=== PATIENT | female | born 1960 | race Caucasian/White ===

== ENCOUNTER → 2018-09-12 | Outpatient (CLI) | payer OTHER ==
[~2018-09-12] MED LIST: ACET325T9 PO; BUSP5TAB PO; DIPH25CA58 PO; GADOBUTROL 7.5 MMOL/7.5 ML VIAL IV ONE; LORA10TA68 PO; PANT20TA2 PO; RITU10VI IV; THYR30TA PO
--- NOTE | 2018-09-12 16:56 | RAD ---
MRI of the Brain without and with Contrast 09/12/2018 Clinical History: History of lymphoma. Palpable mass in the region of the glabella for the last 2 months. Technique: Unenhanced T1-weighted sagittal and axial and FLAIR, T2-weighted, gradient echo and diffusion-weighted axial images of the brain were obtained. After the intravenous administration of 6 cc of Gadavist, enhanced T1-weighted axial, sagittal and coronal images of the brain were obtained. Additionally fat saturated thin section T1-weighted axial and sagittal images through the region of the patient's soft tissue mass were performed. Findings: No previous imaging studies are available for comparison. There is a mild generalized parenchymal atrophy. Patchy and a few small scattered areas of increased signal intensity are seen within the periventricular and subcortical white matter of both cerebral hemispheres on FLAIR and T2-weighted images consistent with areas of minimal small vessel ischemic disease. No acute parenchymal abnormality is seen. No extra-axial fluid collection is noted. There is no MRI evidence of acute ischemia/infarction. No area of abnormal parenchymal contrast enhancement is seen. A heterogeneously enhancing soft tissue mass is seen within the midline frontal scalp immediately anterior to the frontal sinuses. This measures 3.0 x 3.0 x 1.8 cm in craniocaudal, transverse and AP dimensions. This is consistent most likely with a neoplastic process given the patient's history. No intracranial extension is noted. No additional mass lesion is seen. Mild mucosal thickening is seen scattered throughout the paranasal sinuses. Normal flow voids are seen within the major vascular structures surrounding the brain parenchyma. IMPRESSION: 1. 3 cm soft tissue mass is seen within the midline frontal scalp anterior to the frontal sinuses concerning for a neoplastic process as outlined above. No intracranial extension is seen. 2. No acute parenchymal abnormality is seen. There is no MRI evidence of metastatic disease involving the brain parenchyma. Electronically signed by: Barber Muhammad MD (09/12/2018 4:51 PM) [facility]
== END | disposition home or self-care (01) ==
LOC: MRI 14:11 → EDUNIT# 14:45
PROVIDERS: ATTEND Internal Medicine Hematology & Oncology
DX: C83.31 Diffuse large B-cell lymphoma, lymph nodes of head, face, and neck (principal); Z88.8 Allergy status to other drugs, medicaments and biological substances
CPT/HCPCS: 70553; A9585

== ENCOUNTER 2018-09-13 10:16 | Outpatient (CLI) | payer OTHER ==
[~2018-09-13] VITALS: Ht 160 cm; Wt 63.5 kg
[2018-09-13] VITALS (8 sets, daily range): BP systolic 102–142; BP diastolic 50–76
[2018-09-13] MEDS ORDERED: LIDOCAINE WITH 8.4% SOD BICARB 3 ML DISP.SYRIN. ONE (10:39)
[2018-09-13 10:52] LABS: BASO % 1 % (0-3); EOS % 1 % (0-3); HEMATOCRIT 43.2 % (36.0-47.0); HEMOGLOBIN 14.1 g/dL (12.0-15.5); LYMPH # 0.2 x10^3/uL (1.0-4.8); LYMPH % 6 % (24-48); MEAN CORPUSCULAR HEMOGLOBIN 26 pg (25-35); MEAN CORPUSCULAR HGB CONC 33 g/dL (31-37); MEAN CORPUSCULAR VOLUME 79 fL (79-100); MONO # 0.2 x10^3/uL (0.0-1.1); MONO % 7 % (0-9); NEUT # 3.1 x10^3uL (1.8-7.7); NEUT % 85 % (31-73); PLATELET COUNT 230 x10^3/uL (140-400); RED BLOOD COUNT 5.49 x10^6/uL (3.50-5.40); RED CELL DISTRIBUTION WIDTH 14.6 % (11.5-14.5); WHITE BLOOD COUNT 3.6 x10^3/uL (4.0-11.0)
[2018-09-13] MEDS ORDERED: THYR30TA PO (10:59)
[2018-09-13] MEDS ORDERED: BUSP5TAB PO (10:59)
[2018-09-13] MEDS ORDERED: PANT20TA2 PO (10:59)
[2018-09-13 11:03] LABS: PROTHROMBIN TIME PATIENT 12.7 SEC (11.7-14.0)
[2018-09-13 11:04] LABS: CALCIUM 9.3 mg/dL (8.5-10.1); CREATININE 0.8 mg/dL (0.6-1.0); GFR 73.4; POTASSIUM 3.6 mmol/L (3.5-5.1)
[2018-09-13 11:08] LABS: ALBUMIN 4.1 g/dL (3.4-5.0); ALBUMIN/GLOBULIN RATIO 1.2 (1.0-1.7); TOTAL BILIRUBIN 0.4 mg/dL (0.2-1.0); TOTAL PROTEIN 7.5 g/dL (6.4-8.2)
[2018-09-13] MEDS ORDERED: LIDOCAINE 1%/EPI 1:100,000 20 ML VIAL. ONE (11:11)
[2018-09-13] MEDS ORDERED: MIDAZOLAM HCL/PF 5 MG/5 ML VIAL. ONE (11:20)
[2018-09-13] MEDS ORDERED: fentaNYL PF VIAL 100 MCG/2 ML VIAL ONE ×2 (11:20→11:21)
[2018-09-13 11:22] LABS: % BASOS 2 % (0-3); % EOS 2 % (0-5); % LYMPHS 12 % (24-48); % MONOS 11 % (0-10); % SEGS 73 % (35-66)
[2018-09-13 11:23] LABS: ANISOCYTOSIS SLIGHT; OVALOCYTES OCC; PLT ESTIMATE ADEQUATE (ADEQUATE)
[2018-09-13] MEDS ORDERED: LIDOCAINE WITH 8.4% SOD BICARB 3 ML DISP.SYRIN. IJ ONE (11:30)
[2018-09-13] MEDS ORDERED: fentaNYL PF VIAL 100 MCG/2 ML VIAL IV ONE (11:30)
[2018-09-13] MEDS ORDERED: MIDAZOLAM HCL/PF 5 MG/5 ML VIAL. IV ONE (11:30)
[2018-09-13] MEDS ORDERED: LIDOCAINE 2%/EPI 1:100,000 20 ML VIAL. IJ ONE (12:00)
--- NOTE | 2018-09-13 13:53 | NUR ---
discharge instructions reviewed with patient. Pt stated understanding. Pt ambulated and tolerated PO. Pt discharged from [facility] OBS to echo
--- NOTE | 2018-09-13 14:25 | RAD ---
CT-guided bone marrow biopsy. 09/13/2018 2:20 PM Indication: STAGING FOR BCELL LYMPHOMA Discussion: The risks and benefits of the procedure, including but not limited to, bleeding and infection were discussed patient. Informed consent was obtained. The patient was brought to the CT scanner and placed in the prone position. A timeout procedure was performed. Collector CT imaging of the pelvis demonstrated left ilium amenable to bone marrow biopsy. The overlying soft tissues were prepped and draped using maximum sterile barrier technique. 1% lidocaine without epinephrine was administered for local anesthesia. Under intermittent CT guidance, an Onc Control needle was advanced into the bone marrow of the left iliac crest. 2 Aspirates and 1 core biopsy samples were obtained. Samples were delivered to pathology was present at the time of procedure. The needle was removed and manual pressure held to achieve hemostasis. No immediate complications were identified. The procedure was performed under conscious sedation including continuous cardiopulmonary monitoring via dedicated sedation nurse. Sedation time: 20 minutes Impression: Successful CT-guided bone marrow biopsy of the left iliac crest . PQRS Compliance Statement: One or more of the following individualized dose reduction techniques were utilized for this examination: 1. Automated exposure control 2. Adjustment of the mA and/or kV according to patient size 3. Use of iterative reconstruction technique
--- NOTE | 2018-09-13 15:16 | CARD ---
MR#: [id number] Date of Study: 09/13/2018 Ordering Physician: CALLUM ARMIJO, Referring Physician: CALLUM ARMIJO, Tech: Cecilia Chavez APPROVED REPORT EXAM: Two-dimensional and M-mode echocardiogram with Doppler and color Doppler. Other Information Quality : GoodHR: 83bpm Rhythm : NSR INDICATION Lymphoma/Bone Marrow Cancer 2D DIMENSIONS RVDd2.3 (2.9-3.5cm)Left Atrium(2D)3.0 (1.6-4.0cm) IVSd1.0 (0.7-1.1cm)Aortic Root(2D)3.2 (2.0-3.7cm) LVDd3.9 (3.9-5.9cm)LVOT Diameter2.0 (1.8-2.4cm) PWd0.9 (0.7-1.1cm)LVDs2.5 (2.5-4.0cm) FS (%) 36.8 %SV45.5 ml LVEF(%)67.3 (>50%) LEFT VENTRICLE The left ventricle is normal size. There is normal left ventricular wall thickness. The left ventricu lar systolic function is normal. The Ejection Fraction is 55-60%. There is normal LV segmental wall m otion. RIGHT VENTRICLE The right ventricle is normal size. There is normal right ventricular wall thickness. The right ventr icular systolic function is normal. ATRIA The left atrium size is normal. The right atrium size is normal. AORTIC VALVE The aortic valve is normal in structure and function. There is no significant aortic valvular stenosi s. MITRAL VALVE The mitral valve is normal in structure and function. There is no evidence of mitral valve prolapse. There is no mitral valve stenosis. TRICUSPID VALVE The tricuspid valve is normal in structure and function. There is no tricuspid valve prolapse or vege tation. There is no tricuspid valve stenosis. PULMONIC VALVE The pulmonic valve is not visualized. GREAT VESSELS The aortic root is normal in size. The IVC is normal in size and collapses >50% with inspiration. PERICARDIAL EFFUSION There is no evidence of significant pericardial effusion. Critical Notification Critical Value: No <Conclusion> Limited echo to assess LV function. The left ventricular systolic function is normal. The Ejection Fraction is 55-60%. There is normal LV segmental wall motion. There is no evidence of significant pericardial effusion. Signed by : Sami Brewer, Electronically Approved : 09/13/2018 15:14:28
[2018-09-15] MEDS ORDERED: PANT20TA2 PO (14:28)
[2018-09-15] MEDS ORDERED: RITU10VI IV (14:28)
--- NOTE | 2018-09-23 13:07 | PATHOLOGY ---
[facility] Accession Number: [id number] . 01 Material submitted: . PART A: BONE MARROW BIOPSY PART B: BONE MARROW CLOT PART C: BONE MARROW ASPIRATE SLIDES PART D: PERIPHERAL BLOOD PART E: BONE MARROW FLOW . 01 Clinical history: . Diffuse large B-cell lymphoma . 02 Diagnosis: Peripheral smear: - Mild leukopenia and absolute lymphopenia. . Bone marrow, aspirate smears, clot section, and core biopsy: - Variable normocellular to mildly hypercellular marrow showing trilineage hematopoiesis, no significant dyspoiesis, and nodular involvement by CD5, CD10 negative B-cell lymphoproliferative disorder. - Focally adequate reticuloendothelial iron stores. LBQ/09/22/2018 . 02 Comment: The peripheral smear shows mild leukopenia and absolute lymphopenia. The bone marrow is normocellular to mildly hypercellular and shows trilineage hematopoiesis, no significant dyspoiesis, and nodular involvement by low grade CD5,CD10 negative B-cell lymphoproliferative disorder. There is histologic discordance between the bone marrow and forehead lesion. The bone marrow lymphoproliferative disorder is comprised of small lymphocytes. The forehead lesion is a diffuse large B-cell lymphoma by report. The bone marrow shows no more than 20-30% involvement by lymphoma. The case is also examined by Dr. Sheyla Sanchez, who concurs with the diagnosis. (JPM/db; 09/22/2018) . Special stains performed: Reticulin stain on A1, iron stain on B1 and the aspirate smear . Immunoperoxidase stains on B1 include C20, CD3, CD5, CD23, CD10, cyclin D1, BCL-2, BCL-6, and MUM-1 . Immunoperoxidase stains on A1 include CD20 and CD3 . 02 Electronically signed: . Denis Garg MD, Pathologist NPI- [id number] . 01 Gross description: . A. Received in formalin labeled "Cecilia Andrade," and additionally labeled on the requisition as "BM BX," are 2 needle cores of waite bone measuring 0.5 and 1.2 cm in length and 0.3 cm each in diameter. The specimen is submitted entirely in cassette A1, following decalcification. . B. Received in formalin labeled "Cecilia Andrade, BM asp-clot," is an aggregate of dark waite blood clot measuring 2.5 x 1.1 x 0.2 cm. The specimen is filtered and entirely submitted in cassette B1. (TSD; 09/13/2018) TOB/TOB . 02 Microscopic: . Laboratory Data: The WBC count is 3.6 K/CMM, and the automated WBC differential reveals 85% neutrophils, 6% lymphs, 7% monos, 1% eos, and 1% baso. The RBC count is 5.49 M/CMM, hemoglobin 14.1 G/DL, hematocrit 43.2%, MCV 79 FL, MCH 26 PG, MCHC 33 G/DL, and the RDW is 14.6%. The platelet count is 230 K/CMM. The total protein is 7.5 G/DL, albumin 4.1 G/DL, and the globulin is 3.4 G/DL. Additional laboratory results are obtained from Dr. Armijo's office. The beta 2 microglobulin is 2.1 MG/L. The LDH is 267 U/L. The patient underwent biopsy of a forehead lesion on 08/26/2018 which revealed a diffuse large B-cell lymphoma which was MUM-1 positive. . Peripheral Smear: The peripheral smear is reviewed. The WBC count is mildly decreased. There is an absolute lymphopenia. The WBC differential reveals a predominance of segmented neutrophils, with small populations of lymphocytes and monocytes and an occasional eosinophil and basophil noted. Neutrophils do not show dysplastic changes. There is no significant neutrophilic left shift. There are no circulating blasts. The lymphocyte population consists of small lymphocytes with a few reactive lymphocytes noted. There are no obvious circulating lymphoma cells. Red blood cells appear normochromic. Red blood cells show no significant anisocytosis and range from normocytic to mildly microcytic. Red blood cells show mild poikilocytosis comprised of ovalocytes. Platelets appear normal in number and morphology with occasional large platelets are noted. . Aspirate Smears: Two Covarrubias's-stained and one iron-stained aspirate smears are examined. The smears contain only a few small marrow particles. Erythroid maturation appears normoblastic. There are no megaloblastic or overt dysplastic changes. Granulopoiesis qualitatively appears normal. There is no significant left shift or dysplastic changes. There is no increase of blasts. Megakaryocytes appear adequate and are of variable ploidy. Plasma cells are not increased. There are admixed small lymphocytes. There is no atypical large cell lymphoid infiltrate. There are no other cells foreign to the marrow. The iron stain smear contains only a few minute particles which are devoid of stainable iron. . Bone Marrow Biopsy and Clot Sections: Sections of the bone marrow biopsy reveal segments of bone marrow which range between 20-30% and 70-80% cellular. The clot section contains multiple marrow particles which range from approximately 20% up to approximately 60% cellular. There is trilineage hematopoiesis. There is a good admixture of erythroid and granulocytic precursors, which are present in varying stages of maturation. Megakaryocytes appear adequate and are of variable ploidy. There are multiple lymphoid nodules within the bone marrow biopsy. Most of these nodules are not paratrabecular. A few of the nodules are in part paratrabecular. Some of the nodules have an expansile appearance. The particles in the clot section also contain multiple lymphoid nodules. Some of these also have an expansile appearance. The lymphoid nodules are comprised of small lymphocytes having scanty cytoplasm and rounded to slightly irregular hyperchromatic nuclei. There is no atypical large cell lymphoid infiltrate. There are no granulomas. There are no other cells foreign to the marrow. To confirm flow cytometric findings and characterize the target cells in a tissue architectural context, a panel of immunoperoxidase stain is obtained and yields the following results: . CD20 (A1) - Predominant population of small lymphocytes within lymphoid nodules positive; a few small lymphocytes positive scattered throughout marrow interstitium. CD3 (A1) - Subpopulation of small lymphocytes within lymphoid nodules positive; small population of small lymphocytes positive having an interstitial distribution. CD20 (B1) - Slightly predominant population of small lymphocytes within lymphoid nodules positive; a few small lymphocytes positive within marrow interstitium. CD3 (B1) - Significant subpopulation of small lymphocytes within lymphoid nodules positive; small population of small lymphocytes positive having an interstitial distribution. CD5 (B1) - Small lymphocytes positive having a similar distribution as CD3 CD23 (B1) - Small lymphocytes negative. CD10 (B1) - Small lymphocytes negative. Cyclin D1 (B1) - Small lymphocytes essentially negative. BCL-2 (B1) - Small lymphocytes within lymphoid nodules and marrow interstitium positive. BCL-6 (B1) - Small lymphocytes within lymphoid nodules negative. MUM-1 (B1) - Few small lymphocytes within lymphoid nodules and interstitium positive . A reticulin stain obtained on the bone marrow biopsy shows focal increased reticulin fibers associated with the lymphoid nodules. An iron stain obtained on the clot section shows focally adequate reticuloendothelial iron stores. . Special Studies: Bone marrow submitted for flow cytometry has a viability of 99.2%. Granulocytes comprise 85.9% of total cells and show phenotypic evidence of dyssynchronous maturation with down regulation of CD10. Monocytes comprise 1.9% of total cells and show phenotypic evidence of maturation. CD45 dim, CD34 positive cells comprise 0.8% of total cells. Plasma cells comprise 0.1% of total cells. Lymphocytes comprise 5.8% of total cells. T-cells comprise 74% of lymphoid cells and show a CD4/CD8 ratio of about 5.5. NK-cells comprise 4% of lymphoid cells and are unremarkable. B-cells comprise 12.3% of lymphoid cells and 0.7% of total cells and are comprised of monoclonal B cells which are positive for CD19 and CD20 and show kappa light chain expression. These B-cells show no significant expression of CD5, CD10, CD11c, or CD23. By forward light scatter properties, the cells are mostly small. . Bone marrow submitted for cytogenetic analysis reveals a normal female karyocyte in all cells analyzed. (JPM:pit:db 09/19/2018) . 02 Pathologist provided ICD-10: D47.9, D72.819, D72.810 . 02 CPT . 975306, 978881, 047624, 904484, 382482, 381782, 281243, 527420, S43254, N26136 Specimen Comment: A courtesy copy of this report has been sent to Specimen Comment: [phone], , . Specimen Comment: Report sent to ,DR ARMIJO / DR GARCIA Specimen Comment: A duplicate report has been generated due to demographic updates. Performed at: [address] [place] [address] [address], [place], [place] [id number] MD Denzel Ibrahim MD Phone: [phone] Performed at: [address] [id number] MD Denis Garg MD Phone: [phone]
--- NOTE | 2018-10-04 13:20 | RAD ---
Procedure: Ultrasound and fluoroscopically guided placement of right internal jugular power port.. 09/13/2018 2:20 PM Clinical Indication: Chemotherapy access, lymphoma Sedation: Conscious sedation was administered for 30 minutes. The patient was monitored by a qualified independent observer throughout the time of sedation. Please refer to the medical record for exact doses of medications utilized to achieve moderate sedation. Fluoroscopy time: 0.4 minutes Dose area product: 1 Gycm2 Consent: The procedure was explained in its entirety to the patient or the patients designated digital media representative by a member of the treatment team, including a discussion of the risks, benefits and commonly accepted alternatives to the procedure, as well as the expected consequences of no therapy whatsoever. Discussion of the risks included, but was not limited to, those that are most frequent and those that are rare but possibly severe or life-threatening, as well as the possibility of unforeseen complications. Technique and Findings: All elements of maximal sterile barrier technique including the use of a cap, mask, sterile gown, sterile gloves, large sterile sheet, appropriate hand hygiene, and 2% chlorhexidine for cutaneous antisepsis (or acceptable alternative antiseptic per current guidelines) were followed for this procedure. Following informed consent, and a timeout procedure, the patient was prepped and draped in the usual sterile fashion. Ultrasound interrogation of the right neck revealed patency and compressibility of the right internal jugular vein. A 21-gauge micropuncture was then used to gain access to this vein under ultrasound guidance. A hard copy ultrasound image was recorded. The needle was exchanged over a wire for a sheath. A 1 inch incision was made several centimeters inferior to the venotomy site. A catheter was tunneled from this site dermatotomy site in the neck. Catheter was advanced through peel-away sheath such that its tip was in the proximal right atrium with the patient supine. The catheter was trimmed to length and connected to the port reservoir. The port was found to flush and aspirate normally. The wound was closed in layers using 4-0 Vicryl suture. Sterile dressings were applied. Impression: Successful ultrasound and fluoroscopically guided placement of a right internal jugular PowerPort DICTATED and SIGNED BY: LAISHA FRASER MD DATE: 09/13/18 1420 [facility]
== END 2018-09-13 14:05 | disposition home or self-care (01) ==
LOC: INTRAD 10:16
PROVIDERS: ATTEND Internal Medicine Hematology & Oncology
DX: C83.31 Diffuse large B-cell lymphoma, lymph nodes of head, face, and neck (principal); Z88.8 Allergy status to other drugs, medicaments and biological substances; Z79.899 Other long term (current) drug therapy
CPT/HCPCS: 36415; 36561; 38222; 76937; 77001; 77012; 80053; 85025; 85610; 88184; 88185; 88237; 88305; 88311; 88313; 88341; 88342; 93308; 99152; 99153; C1751; C1892; J0690; J2250; J3010; J3490; 85007

== ENCOUNTER 2018-11-07 12:29 | Emergency (ER) | payer OTHER ==
[~2018-11-07] VITALS: Ht 160 cm; Wt 63.5 kg
[~2018-11-07 12:29] MED LIST changes: -ACET325T9 PO; -DIPH25CA58 PO; -GADOBUTROL 7.5 MMOL/7.5 ML VIAL IV ONE; -LORA10TA68 PO
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
[2018-11-07 13:33] VITALS: BP 121/69
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
== END 2018-11-07 13:39 | disposition home or self-care (01) ==
LOC: ER 12:29
DX: Z04.1 Encounter for examination and observation following transport accident (principal); E03.9 Hypothyroidism, unspecified; Z95.9 Presence of cardiac and vascular implant and graft, unspecified; Z88.8 Allergy status to other drugs, medicaments and biological substances; V43.62XA Car passenger injured in collision with other type car in traffic accident, initial encounter; Y93.89 Activity, other specified; Y92.410 Unspecified street and highway as the place of occurrence of the external cause; Y99.8 Other external cause status
CPT/HCPCS: 71045; 99283

== ENCOUNTER 2018-11-23 12:09 | Inpatient (IN) | payer OTHER ==
[~2018-11-23] VITALS: Ht 160 cm; Wt 64.4 kg
--- NOTE | 2018-11-23 12:24 | PHYS DOC ---
Past Medical History Past Medical History: Cancer, Hypothyroid, Other Additional Past Medical Histor: LYMPHOMA (PERI ADAM APRN) Past Surgical History: Other Additional Past Surgical Histo: PAC R CHEST (VERNAPERI Colunga APRN) Alcohol Use: None Drug Use: None (VRENACristinePERI APRN) Adult General Chief Complaint Chief Complaint: FEVER HPI HPI Patient is a 58 year old female with history of lymphoma on chemotherapy last treatment 6 days ago who presents to the ED today complaining of fever that began last night. Patient is also complaining of chills and a cough. Denies any chest pain or shortness of breath. Patient states she took Tylenol an hour ago. PCP Dr. Talat Resendiz Oncologist Dr. Turner (PERI ADAM APRN) Review of Systems Review of Systems Constitutional: Reports fever and chills [] Eyes: Denies change in visual acuity, redness, or eye pain [] HENT: Denies nasal congestion or sore throat [] Respiratory: reports cough denies shortness of breath [] Cardiovascular: No additional information not addressed in HPI [] GI: Denies abdominal pain, nausea, vomiting, bloody stools or diarrhea [] : Denies dysuria or hematuria [] Musculoskeletal: Denies back pain or joint pain [] Integument: Denies rash or skin lesions [] Neurologic: Denies headache, focal weakness or sensory changes [] All other systems were reviewed and found to be within normal limits, except as documented in this note. (RONACARLEENPERI Colunga APRN) Current Medications Current Medications Current Medications Medications (Trade) Dose Ordered Sig/Anne Start Time Stop Time Status Last Admin Dose Admin Piperacillin Sod/ Tazobactam Sod 4.5 gm/Sodium Chloride 100 ml @ 200 mls/hr 1X ONCE 11/23/18 12:30 11/23/18 12:59 DC 11/23/18 13:20 200 MLS/HR Sodium Chloride 1,000 ml @ 1,560 mls/hr Q39M 11/23/18 12:29 11/23/18 13:29 DC 11/23/18 12:15 1,560 MLS/HR Vancomycin HCl (Vanco Per Pharmacy) 1 each 1X ONCE 11/23/18 12:30 11/23/18 13:58 DC Vancomycin HCl 1.5 gm/Sodium Chloride 500 ml @ 250 mls/hr 1X ONCE 11/23/18 13:00 11/23/18 14:59 DC 11/23/18 13:50 250 MLS/HR (SHARMAINE BEST DO) Allergies Allergies Allergies Coded Allergies Type Severity Reaction Last Updated Verified thimerosal Allergy Intermediate Itching 09/12/18 Yes (SHARMAINE BEST DO) Physical Exam Physical Exam Constitutional: Well developed, well nourished, no acute distress, non-toxic appearance. [] HENT: Normocephalic, atraumatic, bilateral external ears normal, oropharynx moist, no oral exudates, nose normal. [] Eyes: PERRLA, EOMI, conjunctiva normal, no discharge. [] Neck: Normal range of motion, no tenderness, supple, no stridor. [] Cardiovascular:Heart rate regular rhythm, no murmur [] Lungs & Thorax: Bilateral breath sounds clear to auscultation [] Abdomen: Bowel sounds normal, soft, no tenderness, no masses, no pulsatile masses. [] Skin: Warm, dry, no erythema, no rash. [] Right upper chest with a port cath. Back: No tenderness, no CVA tenderness. [] Extremities: No tenderness, no cyanosis, no clubbing, ROM intact, no edema. [] Neurologic: Alert and oriented X 3, normal motor function, normal sensory function, no focal deficits noted. [] Psychologic: Affect normal, judgement normal, mood normal. [] (PERI ADAM APRN) Current Patient Data Vital Signs Vital Signs Date Time Temp Pulse Resp B/P (MAP) Pulse Ox O2 Delivery O2 Flow Rate FiO2 11/23/18 14:15 82 20 125/61 (82) 100 Room Air 11/23/18 12:21 98.7 98.7 (SHARMAINE BEST DO) Lab Values Laboratory Tests Test 11/23/18 12:29 11/23/18 12:30 11/23/18 12:32 11/23/18 12:35 White Blood Count 0.3 x10^3/uL (4.0-11.0) *L Red Blood Count 4.47 x10^6/uL (3.50-5.40) Hemoglobin 11.8 g/dL (12.0-15.5) L Hematocrit 35.9 % (36.0-47.0) L Mean Corpuscular Volume 80 fL (79-100) Mean Corpuscular Hemoglobin 27 pg (25-35) Mean Corpuscular Hemoglobin Concent 33 g/dL (31-37) Red Cell Distribution Width 18.6 % (11.5-14.5) H Platelet Count 124 x10^3/uL (140-400) L Neutrophils (%) (Auto) 1 % (31-73) L Lymphocytes (%) (Auto) 62 % (24-48) H Monocytes (%) (Auto) 11 % (0-9) H Eosinophils (%) (Auto) 26 % (0-3) H Basophils (%) (Auto) 0 % (0-3) Neutrophils # (Auto) 0.0 x10^3uL (1.8-7.7) L Lymphocytes # (Auto) 0.2 x10^3/uL (1.0-4.8) L Monocytes # (Auto) 0.0 x10^3/uL (0.0-1.1) Eosinophils # (Auto) 0.1 x10^3/uL (0.0-0.7) Basophils # (Auto) 0.0 x10^3/uL (0.0-0.2) Segmented Neutrophils % 5 % (35-66) L Band Neutrophils % 2 % (0-9) Lymphocytes % 61 % (24-48) H Monocytes % 10 % (0-10) Eosinophils % 22 % (0-5) H Platelet Estimate Adequate (ADEQUATE) Sodium Level 138 mmol/L (136-145) Potassium Level 3.8 mmol/L (3.5-5.1) Chloride Level 101 mmol/L (98-107) Carbon Dioxide Level 28 mmol/L (21-32) Anion Gap 9 (6-14) Blood Urea Nitrogen 11 mg/dL (7-20) Creatinine 0.8 mg/dL (0.6-1.0) Estimated GFR (Cockcroft-Gault) 73.2 BUN/Creatinine Ratio 14 (6-20) Glucose Level 113 mg/dL (70-99) H Lactic Acid Level 1.8 mmol/L (0.4-2.0) Calcium Level 9.0 mg/dL (8.5-10.1) Total Bilirubin 0.8 mg/dL (0.2-1.0) Aspartate Amino Transferase (AST) 20 U/L (15-37) Alanine Aminotransferase (ALT) 56 U/L (14-59) Alkaline Phosphatase 96 U/L (46-116) Troponin I Quantitative < 0.017 ng/mL (0.000-0.055) Total Protein 6.7 g/dL (6.4-8.2) Albumin 4.0 g/dL (3.4-5.0) Albumin/Globulin Ratio 1.5 (1.0-1.7) Procalcitonin < 0.10 ng/mL (0.00-0.10) Urine Collection Type Unknown Urine Color Yellow Urine Clarity Clear Urine pH 7.5 Urine Specific [place] <=1.005 Urine Protein Negative mg/dL (NEG-TRACE) Urine Glucose (UA) Negative mg/dL (NEG) Urine Ketones (Stick) Negative mg/dL (NEG) Urine Blood Negative (NEG) Urine Nitrite Negative (NEG) Urine Bilirubin Negative (NEG) Urine Urobilinogen Dipstick 0.2 mg/dL (0.2 mg/dL) Urine Leukocyte Esterase Negative (NEG) Urine RBC 0 /HPF (0-2) Urine WBC Rare /HPF (0-4) Urine Squamous Epithelial Cells Few /LPF Urine Bacteria 0 /HPF (0-FEW) Influenza Type A Antigen Negative (NEGATIVE) Influenza Type B Antigen Negative (NEGATIVE) Laboratory Tests 11/23/18 12:29 Laboratory Tests 11/23/18 12:30 (SHARMAINE BEST DO) Lab Values Laboratory Tests Test 11/23/18 12:29 11/23/18 12:30 11/23/18 12:32 11/23/18 12:35 White Blood Count 0.3 x10^3/uL (4.0-11.0) *L Red Blood Count 4.47 x10^6/uL (3.50-5.40) Hemoglobin 11.8 g/dL (12.0-15.5) L Hematocrit 35.9 % (36.0-47.0) L Mean Corpuscular Volume 80 fL (79-100) Mean Corpuscular Hemoglobin 27 pg (25-35) Mean Corpuscular Hemoglobin Concent 33 g/dL (31-37) Red Cell Distribution Width 18.6 % (11.5-14.5) H Platelet Count 124 x10^3/uL (140-400) L Neutrophils (%) (Auto) 1 % (31-73) L Lymphocytes (%) (Auto) 62 % (24-48) H Monocytes (%) (Auto) 11 % (0-9) H Eosinophils (%) (Auto) 26 % (0-3) H Basophils (%) (Auto) 0 % (0-3) Neutrophils # (Auto) 0.0 x10^3uL (1.8-7.7) L Lymphocytes # (Auto) 0.2 x10^3/uL (1.0-4.8) L Monocytes # (Auto) 0.0 x10^3/uL (0.0-1.1) Eosinophils # (Auto) 0.1 x10^3/uL (0.0-0.7) Basophils # (Auto) 0.0 x10^3/uL (0.0-0.2) Segmented Neutrophils % 5 % (35-66) L Band Neutrophils % 2 % (0-9) Lymphocytes % 61 % (24-48) H Monocytes % 10 % (0-10) Eosinophils % 22 % (0-5) H Platelet Estimate Adequate (ADEQUATE) Sodium Level 138 mmol/L (136-145) Potassium Level 3.8 mmol/L (3.5-5.1) Chloride Level 101 mmol/L (98-107) Carbon Dioxide Level 28 mmol/L (21-32) Anion Gap 9 (6-14) Blood Urea Nitrogen 11 mg/dL (7-20) Creatinine 0.8 mg/dL (0.6-1.0) Estimated GFR (Cockcroft-Gault) 73.2 BUN/Creatinine Ratio 14 (6-20) Glucose Level 113 mg/dL (70-99) H Lactic Acid Level 1.8 mmol/L (0.4-2.0) Calcium Level 9.0 mg/dL (8.5-10.1) Total Bilirubin 0.8 mg/dL (0.2-1.0) Aspartate Amino Transferase (AST) 20 U/L (15-37) Alanine Aminotransferase (ALT) 56 U/L (14-59) Alkaline Phosphatase 96 U/L (46-116) Troponin I Quantitative < 0.017 ng/mL (0.000-0.055) Total Protein 6.7 g/dL (6.4-8.2) Albumin 4.0 g/dL (3.4-5.0) Albumin/Globulin Ratio 1.5 (1.0-1.7) Procalcitonin < 0.10 ng/mL (0.00-0.10) Urine Collection Type Unknown Urine Color Yellow Urine Clarity Clear Urine pH 7.5 Urine Specific [place] <=1.005 Urine Protein Negative mg/dL (NEG-TRACE) Urine Glucose (UA) Negative mg/dL (NEG) Urine Ketones (Stick) Negative mg/dL (NEG) Urine Blood Negative (NEG) Urine Nitrite Negative (NEG) Urine Bilirubin Negative (NEG) Urine Urobilinogen Dipstick 0.2 mg/dL (0.2 mg/dL) Urine Leukocyte Esterase Negative (NEG) Urine RBC 0 /HPF (0-2) Urine WBC Rare /HPF (0-4) Urine Squamous Epithelial Cells Few /LPF Urine Bacteria 0 /HPF (0-FEW) Influenza Type A Antigen Negative (NEGATIVE) Influenza Type B Antigen Negative (NEGATIVE) Laboratory Tests 11/23/18 12:29 Laboratory Tests 11/23/18 12:30 (PERI ADAM APRN) EKG EKG [] (PERI ADAM APRN) EKG @1238 NSR at 84bpm, NO ST elevation (SHARMAINE BEST DO) Radiology/Procedures Radiology/Procedures []PROCEDURE: CHEST PA & LATERAL CHEST PA LATERAL History: FEVER X TODAY PATIENT STATES HAD CHEMO 1 WEEK AGO FOR LYMPHOMA
ALSO HAS HAD A COUGH FOR A COUPLE WEEKS Comparison: 11/07/2018 portable chest x-ray exam. Findings: Right internal jugular infusion port catheter is present with the tip overlying the superior vena cava. The cardiomediastinal silhouette is normal. Pulmonary vasculature is normal. The lungs are clear. No pleural effusion or pneumothorax is seen. There is no acute bone abnormality. IMPRESSION: No acute cardiopulmonary process. Electronically signed by: Gino Doss MD (11/23/2018 12:58 PM) [id number] DICTATED and SIGNED BY: GINO DOSS MD DATE: 11/23/18 1258 (PERI ADAM APRN) Course & Med Decision Making Course & Med Decision Making Pertinent Labs and Imaging studies reviewed. (See chart for details) This is a 58-year-old female patient on chemotherapy for lymphoma last treatment 6 ago who presents to the ED today complaining of fever and chills and a cough that began yesterday. Temperature 98.7 in the ED, blood pressure 138 /72 heart rate 94 respiration 18 on room air, O2 sats 99%. CBC with a WBC of 0.3, absolute neutrophil 0.0. CMP with no acute findings. Urine analysis is negative for infection, chest x-ray negative. Negative for influenza A or B. Lactic is normal. Patient was started on IV fluids, vancomycin and Zosyn. Sepsis protocol was followed on arrival to the ED. Patient was placed on neutropenic precautions. Spoke with 's nurse who requested we admit patient. Spoke with Dr. Joseph who accepted patient for admission (PERI ADAM APRN) Dragon Disclaimer Dragon Disclaimer This electronic medical record was generated, in whole or in part, using a voice recognition dictation system. (PERI ADAM APRN) Departure Departure Impression: Primary Impression: Fever Additional Impression: Neutropenia Disposition: ADMITTED INPATIENT Condition: STABLE Referrals: JEYSON GARCIA MD (PCP) Attending Signature Attending Signature I have reviewed the PA/DISPATCH OFFICER's note and plan of care. I was available for consultation as needed during the patient's visit in the emergency department. I agree with the clinical impression, plan, and disposition. (SHARMAINE BEST DO) Attending Signature I have participated in the care of this patient and I have reviewed and agree with all pertinent clinical information above including history, exam, and recommendations. (PERI ADAM APRN) Problem Qualifiers Primary Impression: Fever Fever type: unspecified Qualified Codes: R50.9 - Fever, unspecified Additional Impression: Neutropenia Neutropenia type: secondary to cancer chemotherapy Qualified Codes: D70.1 - Agranulocytosis secondary to cancer chemotherapy; T45.1X5A - Adverse effect of antineoplastic and immunosuppressive drugs, initial encounter PERI ADAM APRN Nov 23, 2018 12:24 SHARMAINE BEST DO Nov 23, 2018 15:22
[2018-11-23] MEDS ORDERED: IV NORMAL SALINE 1000ML BAG 1,000 ML IV SCH (12:29)
[2018-11-23] MEDS ORDERED: VANCOMYCIN PER PHARMACY MC ONE (12:30)
[2018-11-23] MEDS ORDERED: PIPERACILLIN/TAZOBACTAM 4.5 GM in IV NORMAL SALINE 100ML 100 ML IV ONE (12:30)
[2018-11-23 12:51] LABS: BASO % 0 % (0-3); EOS # 0.1 x10^3/uL (0.0-0.7); EOS % 26 % (0-3); HEMATOCRIT 35.9 % (36.0-47.0); HEMOGLOBIN 11.8 g/dL (12.0-15.5); LYMPH # 0.2 x10^3/uL (1.0-4.8); LYMPH % 62 % (24-48); MEAN CORPUSCULAR HEMOGLOBIN 27 pg (25-35); MEAN CORPUSCULAR HGB CONC 33 g/dL (31-37); MEAN CORPUSCULAR VOLUME 80 fL (79-100); MONO % 11 % (0-9); NEUT % 1 % (31-73); PLATELET COUNT 124 x10^3/uL (140-400); RED BLOOD COUNT 4.47 x10^6/uL (3.50-5.40); RED CELL DISTRIBUTION WIDTH 18.6 % (11.5-14.5)
[2018-11-23] MEDS ORDERED: VANCOMYCIN 1.5 GM in IV NORMAL SALINE 500ML BAG 500 ML IV ONE (13:00)
--- NOTE | 2018-11-23 13:02 | RAD ---
CHEST PA LATERAL History: FEVER X TODAY PATIENT STATES HAD CHEMO 1 WEEK AGO FOR LYMPHOMA
ALSO HAS HAD A COUGH FOR A COUPLE WEEKS Comparison: 11/07/2018 portable chest x-ray exam. Findings: Right internal jugular infusion port catheter is present with the tip overlying the superior vena cava. The cardiomediastinal silhouette is normal. Pulmonary vasculature is normal. The lungs are clear. No pleural effusion or pneumothorax is seen. There is no acute bone abnormality. IMPRESSION: No acute cardiopulmonary process. Electronically signed by: Gino Alonzo MD (11/23/2018 12:58 PM) [id number]
[2018-11-23 13:03] LABS: CREATININE 0.8 mg/dL (0.6-1.0); GFR 73.2; POTASSIUM 3.8 mmol/L (3.5-5.1)
[2018-11-23 13:07] LABS: BILIRUBIN,URINE NEGATIVE (NEG); CLARITY,URINE CLEAR; COLOR,URINE YELLOW; NITRITE,URINE NEGATIVE (NEG); PH,URINE 7.5; PROTEIN,URINE NEGATIVE (NEG-TRACE); UROBILINOGEN,URINE 0.2 mg/dL (0.2 mg/dL)
[2018-11-23 13:09] LABS: ALBUMIN/GLOBULIN RATIO 1.5 (1.0-1.7); TOTAL BILIRUBIN 0.8 mg/dL (0.2-1.0); TOTAL PROTEIN 6.7 g/dL (6.4-8.2)
[2018-11-23 13:12] LABS: INFLUENZA A PATIENT NEGATIVE (NEGATIVE); INFLUENZA B PATIENT NEGATIVE (NEGATIVE)
[2018-11-23 13:29] LABS: BACTERIA,URINE 0 /HPF (0-FEW); RBC,URINE 0 /HPF (0-2); SQUAMOUS EPITHELIAL CELL,UR FEW /LPF; WBC,URINE RARE /HPF (0-4)
[2018-11-23 14:24] LABS: % BANDS 2 % (0-9); % EOS 22 % (0-5); % LYMPHS 61 % (24-48); % MONOS 10 % (0-10); % SEGS 5 % (35-66)
[2018-11-23 14:25] LABS: PLT ESTIMATE ADEQUATE (ADEQUATE)
[2018-11-23 15:16] LABS: WHITE BLOOD COUNT 0.3 x10^3/uL (4.0-11.0)
[2018-11-23] MEDS ORDERED: ONDANSETRON PF 4 MG/2 ML VIAL. IV PRN (15:30)
[2018-11-23] MEDS ORDERED: IV NORMAL SALINE 1000ML BAG 1,000 ML IV ONE (15:30)
[2018-11-23] MEDS ORDERED: MORPHINE SULFATE 2 MG/ML VIAL. IV PRN (15:30)
[2018-11-23] MEDS ORDERED: ACETAMINOPHEN 325 MG TABLET. PO PRN ×2 (15:30→21:45)
--- NOTE | 2018-11-23 16:17 | EKG ---
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
[2018-11-23] MEDS ORDERED: LIDO:MAALOX:BENADRYL 1:1:1 180 ML BOTTLE. PO PRN (16:30)
--- NOTE | 2018-11-23 16:37 | PDOC2 ---
CONSULT Date of Consult Date of Consult DATE: 11/23/18 TIME: 16:30 Reason for consultation: Neutropenia and low-grade fever Consult: Hematology oncology, Dr. Irving Nunez History of present illness: She is a 58-year-old female, cycle 4 day 7 of CHOP R with Neulasta given on 18 November, admitted with temperature of 100.0, and worsened allergy symptoms, she spent the day outside, also has some diarrhea which is regular for her, minimal numbness and tingling and some sinus tenderness and a headache this morning. Neutrophil count is 0. Neutropenia is acute, severe, worse due to chemotherapy, associated with a mild anemia and thrombocytopenia and she was given vancomycin and Zosyn in the ER. Chest x-ray was negative, urinalysis was negative other than rare white blood cell and blood culture has been ordered. Pro-calcitonin was less than 0.1. Kidney function is normal and influenza was negative. 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 Physical exam: Vitals reviewed Gen.: Well-nourished and well-developed in no acute distress HEENT: mucous membranes moist, head normocephalic atraumatic Neck: Supple, no lymphadenopathy Lymph nodes: No palpable lymphadenopathy neck or axilla Lungs: Breathing comfortably on room air, no evidence of respiratory distress Heart: Regular rate and rhythm Chest: Port clean dry and intact without inflammation Abdomen: Soft, nontender, nondistended Extremities: No cyanosis or edema Skin: No obvious rashes or skin breakdown Neuro: Alert and oriented 3 Psych: Normal mood and affect Lab reviewed: ANC of 0, total white count of 0.3, hemoglobin of 11.8, platelets of 124 Influenza negative Creatinine 0.8 Pro-calcitonin less than 0.1 Urinalysis with rare white blood cell Blood culture ordered Rads reviewed: Chest x-ray with no acute cardiopulmonary disease Case discussed with: Patient, her nurse, her , and records reviewed in [employer] and [facility] including labs and radiology, please see note for summary details. Assessment and Plan: She is a 58-year-old female with stage IE diffuse large B- cell lymphoma, cycle 4 day 7 of CHOP R plus Neulasta given on 18 November, admitted with a temperature of 100.0 at home and neutrophils of 0 and sinus symptoms she attributes to allergies. She was given Zosyn and vancomycin in the ER. Neutropenia with low-grade fever and sinus symptoms: Would consider cefepime. 2 g IV every 8 hours defer to primary, no need for vancomycin without concern for port infection or mucositis Mouth tenderness: Have ordered Magic mouthwash as needed seasonal allergies: Defer to primary disposition: After continued clinical improvement, Dr. Turner will return in the morning Thank you kindly for this consultation, and please don't hesitate to call with any further questions. Current Problem List Problem List Problems Medical Problems: (1) Fever Status: Acute (2) Neutropenia Status: Acute Current Medications Current Medications Current Medications Sodium Chloride 1,000 ml @ 1,560 mls/hr Q39M IV Last administered on at 12:15; Start 11/23/18 at 12:29; Stop 11/23/18 at 13:29; Status DC Piperacillin Sod/ Tazobactam Sod 4.5 gm/Sodium Chloride 100 ml @ 200 mls/hr 1X ONCE IV Last administered on 11/23/18at 13:20; Start 11/23/18 at 12:30; Stop 11/23/18 at 12:59; Status DC Vancomycin HCl (Vanco Per Pharmacy) 1 each 1X ONCE MC ; Start 11/23/18 at 12:30 ; Stop 11/23/18 at 13:58; Status DC Vancomycin HCl 1.5 gm/Sodium Chloride 500 ml @ 250 mls/hr 1X ONCE IV Last administered on 11/23/18at 13:50; Start 11/23/18 at 13:00; Stop 11/23/18 at 14:59 ; Status DC Ondansetron HCl (Zofran) 4 mg PRN Q8HRS PRN IV NAUSEA/VOMITING; Start 11/23/18 at 15:30; Stop 11/24/18 at 15:29 Morphine Sulfate (Morphine Sulfate) 2 mg PRN Q2HR PRN IV PAIN; Start 11/23/18 at 15:30; Stop 11/24/18 at 15:29 Acetaminophen (Tylenol) 650 mg PRN Q4HRS PRN PO FEVER; Start 11/23/18 at 15:30 ; Stop 11/24/18 at 15:29 Sodium Chloride 1,000 ml @ 125 mls/hr 1X ONCE IV Last administered on at 16:23; Start 11/23/18 at 15:30; Stop 11/23/18 at 23:29 Active Scripts Active Reported Rituxan (Rituximab) 10 Mg/1 Ml Vial 10 Mg IV PER CHEMO REGIMEN Protonix (Pantoprazole Sodium) 20 Mg Tablet.dr 40 Mg PO DAILY Buspirone Hcl 5 Mg Tablet 1 Tab PO PRN BID PRN Thyroid (Thyroid,Pork) 30 Mg Tablet 30 Mg PO DAILY Allergies Allergies: Coded Allergies: thimerosal (Verified Allergy, Intermediate, Itching, 09/12/18) Vitals VITALS Vital Signs Date Time Temp Pulse Resp B/P (MAP) Pulse Ox O2 Delivery O2 Flow Rate FiO2 11/23/18 15:15 97 19 143/65 (91) 100 Room Air 11/23/18 12:21 98.7 98.7 Labs Labs Laboratory Tests Test 11/23/18 12:29 11/23/18 12:30 11/23/18 12:32 11/23/18 12:35 White Blood Count 0.3 x10^3/uL (4.0-11.0) Red Blood Count 4.47 x10^6/uL (3.50-5.40) Hemoglobin 11.8 g/dL (12.0-15.5) Hematocrit 35.9 % (36.0-47.0) Mean Corpuscular Volume 80 fL (79-100) Mean Corpuscular Hemoglobin 27 pg (25-35) Mean Corpuscular Hemoglobin Concent 33 g/dL (31-37) Red Cell Distribution Width 18.6 % (11.5-14.5) Platelet Count 124 x10^3/uL (140-400) Neutrophils (%) (Auto) 1 % (31-73) Lymphocytes (%) (Auto) 62 % (24-48) Monocytes (%) (Auto) 11 % (0-9) Eosinophils (%) (Auto) 26 % (0-3) Basophils (%) (Auto) 0 % (0-3) Neutrophils # (Auto) 0.0 x10^3uL (1.8-7.7) Lymphocytes # (Auto) 0.2 x10^3/uL (1.0-4.8) Monocytes # (Auto) 0.0 x10^3/uL (0.0-1.1) Eosinophils # (Auto) 0.1 x10^3/uL (0.0-0.7) Basophils # (Auto) 0.0 x10^3/uL (0.0-0.2) Segmented Neutrophils % 5 % (35-66) Band Neutrophils % 2 % (0-9) Lymphocytes % 61 % (24-48) Monocytes % 10 % (0-10) Eosinophils % 22 % (0-5) Platelet Estimate Adequate (ADEQUATE) Sodium Level 138 mmol/L (136-145) Potassium Level 3.8 mmol/L (3.5-5.1) Chloride Level 101 mmol/L (98-107) Carbon Dioxide Level 28 mmol/L (21-32) Anion Gap 9 (6-14) Blood Urea Nitrogen 11 mg/dL (7-20) Creatinine 0.8 mg/dL (0.6-1.0) Estimated GFR (Cockcroft-Gault) 73.2 BUN/Creatinine Ratio 14 (6-20) Glucose Level 113 mg/dL (70-99) Lactic Acid Level 1.8 mmol/L (0.4-2.0) Calcium Level 9.0 mg/dL (8.5-10.1) Total Bilirubin 0.8 mg/dL (0.2-1.0) Aspartate Amino Transf (AST/SGOT) 20 U/L (15-37) Alanine Aminotransferase (ALT/SGPT) 56 U/L (14-59) Alkaline Phosphatase 96 U/L (46-116) Troponin I Quantitative < 0.017 ng/mL (0.000-0.055) Total Protein 6.7 g/dL (6.4-8.2) Albumin 4.0 g/dL (3.4-5.0) Albumin/Globulin Ratio 1.5 (1.0-1.7) Procalcitonin < 0.10 ng/mL (0.00-0.10) Urine Collection Type Unknown Urine Color Yellow Urine Clarity Clear Urine pH 7.5 Urine Specific [place] <=1.005 Urine Protein Negative mg/dL (NEG-TRACE) Urine Glucose (UA) Negative mg/dL (NEG) Urine Ketones (Stick) Negative mg/dL (NEG) Urine Blood Negative (NEG) Urine Nitrite Negative (NEG) Urine Bilirubin Negative (NEG) Urine Urobilinogen Dipstick 0.2 mg/dL (0.2 mg/dL) Urine Leukocyte Esterase Negative (NEG) Urine RBC 0 /HPF (0-2) Urine WBC Rare /HPF (0-4) Urine Squamous Epithelial Cells Few /LPF Urine Bacteria 0 /HPF (0-FEW) Influenza Type A Antigen Negative (NEGATIVE) Influenza Type B Antigen Negative (NEGATIVE) Laboratory Tests Test 11/23/18 12:29 11/23/18 12:30 11/23/18 12:32 11/23/18 12:35 White Blood Count 0.3 x10^3/uL (4.0-11.0) Red Blood Count 4.47 x10^6/uL (3.50-5.40) Hemoglobin 11.8 g/dL (12.0-15.5) Hematocrit 35.9 % (36.0-47.0) Mean Corpuscular Volume 80 fL (79-100) Mean Corpuscular Hemoglobin 27 pg (25-35) Mean Corpuscular Hemoglobin Concent 33 g/dL (31-37) Red Cell Distribution Width 18.6 % (11.5-14.5) Platelet Count 124 x10^3/uL (140-400) Neutrophils (%) (Auto) 1 % (31-73) Lymphocytes (%) (Auto) 62 % (24-48) Monocytes (%) (Auto) 11 % (0-9) Eosinophils (%) (Auto) 26 % (0-3) Basophils (%) (Auto) 0 % (0-3) Neutrophils # (Auto) 0.0 x10^3uL (1.8-7.7) Lymphocytes # (Auto) 0.2 x10^3/uL (1.0-4.8) Monocytes # (Auto) 0.0 x10^3/uL (0.0-1.1) Eosinophils # (Auto) 0.1 x10^3/uL (0.0-0.7) Basophils # (Auto) 0.0 x10^3/uL (0.0-0.2) Segmented Neutrophils % 5 % (35-66) Band Neutrophils % 2 % (0-9) Lymphocytes % 61 % (24-48) Monocytes % 10 % (0-10) Eosinophils % 22 % (0-5) Platelet Estimate Adequate (ADEQUATE) Sodium Level 138 mmol/L (136-145) Potassium Level 3.8 mmol/L (3.5-5.1) Chloride Level 101 mmol/L (98-107) Carbon Dioxide Level 28 mmol/L (21-32) Anion Gap 9 (6-14) Blood Urea Nitrogen 11 mg/dL (7-20) Creatinine 0.8 mg/dL (0.6-1.0) Estimated GFR (Cockcroft-Gault) 73.2 BUN/Creatinine Ratio 14 (6-20) Glucose Level 113 mg/dL (70-99) Lactic Acid Level 1.8 mmol/L (0.4-2.0) Calcium Level 9.0 mg/dL (8.5-10.1) Total Bilirubin 0.8 mg/dL (0.2-1.0) Aspartate Amino Transf (AST/SGOT) 20 U/L (15-37) Alanine Aminotransferase (ALT/SGPT) 56 U/L (14-59) Alkaline Phosphatase 96 U/L (46-116) Troponin I Quantitative < 0.017 ng/mL (0.000-0.055) Total Protein 6.7 g/dL (6.4-8.2) Albumin 4.0 g/dL (3.4-5.0) Albumin/Globulin Ratio 1.5 (1.0-1.7) Procalcitonin < 0.10 ng/mL (0.00-0.10) Urine Collection Type Unknown Urine Color Yellow Urine Clarity Clear Urine pH 7.5 Urine Specific [place] <=1.005 Urine Protein Negative mg/dL (NEG-TRACE) Urine Glucose (UA) Negative mg/dL (NEG) Urine Ketones (Stick) Negative mg/dL (NEG) Urine Blood Negative (NEG) Urine Nitrite Negative (NEG) Urine Bilirubin Negative (NEG) Urine Urobilinogen Dipstick 0.2 mg/dL (0.2 mg/dL) Urine Leukocyte Esterase Negative (NEG) Urine RBC 0 /HPF (0-2) Urine WBC Rare /HPF (0-4) Urine Squamous Epithelial Cells Few /LPF Urine Bacteria 0 /HPF (0-FEW) Influenza Type A Antigen Negative (NEGATIVE) Influenza Type B Antigen Negative (NEGATIVE) IRVING NUNEZ MD Nov 23, 2018 16:37
[2018-11-23 19:00] VITALS: BP 135/68
[2018-11-23] MEDS ORDERED: THYR30TA PO (19:25)
[2018-11-23] MEDS ORDERED: DIPH25CA58 PO (19:35)
[2018-11-23] MEDS ORDERED: ACET325T9 PO (19:35)
[2018-11-23] MEDS: CEFEPIME HCL IV Push 2 GM VIAL. IVP SCH (21:25)
[2018-11-23] MEDS ORDERED: diphenhydrAMINE HCL 25 MG CAPSULE PO ONE (22:00)
[2018-11-23] MEDS: BENZONATATE 100 MG CAPSULE. PO PRN (22:01)
[2018-11-23 23:00] VITALS: BP 110/62
[2018-11-24 03:00] VITALS: BP 112/57
[2018-11-24 03:55] LABS: BASO % 0 % (0-3); EOS # 0.1 x10^3/uL (0.0-0.7); EOS % 31 % (0-3); HEMATOCRIT 30.4 % (36.0-47.0); HEMOGLOBIN 9.9 g/dL (12.0-15.5); LYMPH # 0.1 x10^3/uL (1.0-4.8); LYMPH % 48 % (24-48); MEAN CORPUSCULAR HEMOGLOBIN 26 pg (25-35); MEAN CORPUSCULAR HGB CONC 33 g/dL (31-37); MEAN CORPUSCULAR VOLUME 81 fL (79-100); MONO # 0.1 x10^3/uL (0.0-1.1); MONO % 19 % (0-9); NEUT % 2 % (31-73); PLATELET COUNT 100 x10^3/uL (140-400); RED BLOOD COUNT 3.76 x10^6/uL (3.50-5.40); RED CELL DISTRIBUTION WIDTH 18.7 % (11.5-14.5)
[2018-11-24 04:00] LABS: WHITE BLOOD COUNT 0.3 x10^3/uL (4.0-11.0)
[2018-11-24 04:02] LABS: CALCIUM 8.2 mg/dL (8.5-10.1); CREATININE 0.8 mg/dL (0.6-1.0); GFR 73.2; POTASSIUM 3.9 mmol/L (3.5-5.1)
[2018-11-24 07:00] VITALS: BP 115/60
[2018-11-24] MEDS: BENZONATATE 100 MG CAPSULE. PO PRN ×2 (07:00→17:29)
[2018-11-24] MEDS: CEFEPIME HCL IV Push 2 GM VIAL. IVP SCH ×3 (09:11→22:03)
[2018-11-24 11:00] VITALS: BP 110/60
--- NOTE | 2018-11-24 11:29 | PDOC ---
PROGRESS NOTES Subjective Subjective c/c - f/u of stage IE diffuse large B-cell lymphoma ROS - had fever Objective Objective Vital Signs Date Time Temp Pulse Resp B/P (MAP) Pulse Ox O2 Delivery O2 Flow Rate FiO2 11/24/18 08:00 Room Air 11/24/18 07:00 99.2 100 16 115/60 (78) 95 99.2 Intake and Output 11/24/18 06:59 Intake Total 250 ml Balance 250 ml Intake Oral 250 ml # Voids 1 Physical Exam Heart: Normal S1, Normal S2 General: Alert, Oriented X3 Lungs: Clear to auscultation Neuro: Normal speech Psych/Mental Status: Mental status NL Assessment Assessment Problems Medical Problems: (1) Fever Status: Acute (2) Neutropenia Status: Acute Assessment and Plan: She is a 58-year-old female with stage IE diffuse large B- cell lymphoma, cycle 4 day 8 of CHOP R plus Neulasta given on 18 November, admitted with a temperature of 100.0 at home and neutrophils of 0 and sinus symptoms she attributes to allergies. She was given Zosyn and vancomycin in the ER. 1. Neutropenia with low-grade fever and sinus symptoms: Consult ID, I d/w Dr Gonzales. 2. Mouth tenderness: Continue Magic mouthwash as needed 3. stage IE diffuse large B-cell lymphoma, s/p cycle 4 of CHOP R plus Neulasta . Comment Review of Relevant I have reviewed the following items afsaneh (where applicable) has been applied. Labs Laboratory Tests Test 11/23/18 12:29 11/23/18 12:30 11/23/18 12:32 11/23/18 12:35 White Blood Count 0.3 x10^3/uL (4.0-11.0) Red Blood Count 4.47 x10^6/uL (3.50-5.40) Hemoglobin 11.8 g/dL (12.0-15.5) Hematocrit 35.9 % (36.0-47.0) Mean Corpuscular Volume 80 fL (79-100) Mean Corpuscular Hemoglobin 27 pg (25-35) Mean Corpuscular Hemoglobin Concent 33 g/dL (31-37) Red Cell Distribution Width 18.6 % (11.5-14.5) Platelet Count 124 x10^3/uL (140-400) Neutrophils (%) (Auto) 1 % (31-73) Lymphocytes (%) (Auto) 62 % (24-48) Monocytes (%) (Auto) 11 % (0-9) Eosinophils (%) (Auto) 26 % (0-3) Basophils (%) (Auto) 0 % (0-3) Neutrophils # (Auto) 0.0 x10^3uL (1.8-7.7) Lymphocytes # (Auto) 0.2 x10^3/uL (1.0-4.8) Monocytes # (Auto) 0.0 x10^3/uL (0.0-1.1) Eosinophils # (Auto) 0.1 x10^3/uL (0.0-0.7) Basophils # (Auto) 0.0 x10^3/uL (0.0-0.2) Segmented Neutrophils % 5 % (35-66) Band Neutrophils % 2 % (0-9) Lymphocytes % 61 % (24-48) Monocytes % 10 % (0-10) Eosinophils % 22 % (0-5) Platelet Estimate Adequate (ADEQUATE) Sodium Level 138 mmol/L (136-145) Potassium Level 3.8 mmol/L (3.5-5.1) Chloride Level 101 mmol/L (98-107) Carbon Dioxide Level 28 mmol/L (21-32) Anion Gap 9 (6-14) Blood Urea Nitrogen 11 mg/dL (7-20) Creatinine 0.8 mg/dL (0.6-1.0) Estimated GFR (Cockcroft-Gault) 73.2 BUN/Creatinine Ratio 14 (6-20) Glucose Level 113 mg/dL (70-99) Lactic Acid Level 1.8 mmol/L (0.4-2.0) Calcium Level 9.0 mg/dL (8.5-10.1) Total Bilirubin 0.8 mg/dL (0.2-1.0) Aspartate Amino Transf (AST/SGOT) 20 U/L (15-37) Alanine Aminotransferase (ALT/SGPT) 56 U/L (14-59) Alkaline Phosphatase 96 U/L (46-116) Troponin I Quantitative < 0.017 ng/mL (0.000-0.055) Total Protein 6.7 g/dL (6.4-8.2) Albumin 4.0 g/dL (3.4-5.0) Albumin/Globulin Ratio 1.5 (1.0-1.7) Procalcitonin < 0.10 ng/mL (0.00-0.10) Urine Collection Type Unknown Urine Color Yellow Urine Clarity Clear Urine pH 7.5 Urine Specific [place] <=1.005 Urine Protein Negative mg/dL (NEG-TRACE) Urine Glucose (UA) Negative mg/dL (NEG) Urine Ketones (Stick) Negative mg/dL (NEG) Urine Blood Negative (NEG) Urine Nitrite Negative (NEG) Urine Bilirubin Negative (NEG) Urine Urobilinogen Dipstick 0.2 mg/dL (0.2 mg/dL) Urine Leukocyte Esterase Negative (NEG) Urine RBC 0 /HPF (0-2) Urine WBC Rare /HPF (0-4) Urine Squamous Epithelial Cells Few /LPF Urine Bacteria 0 /HPF (0-FEW) Influenza Type A Antigen Negative (NEGATIVE) Influenza Type B Antigen Negative (NEGATIVE) Test 11/23/18 16:30 11/24/18 03:15 Lactic Acid Level 1.6 mmol/L (0.4-2.0) White Blood Count 0.3 x10^3/uL (4.0-11.0) Red Blood Count 3.76 x10^6/uL (3.50-5.40) Hemoglobin 9.9 g/dL (12.0-15.5) Hematocrit 30.4 % (36.0-47.0) Mean Corpuscular Volume 81 fL (79-100) Mean Corpuscular Hemoglobin 26 pg (25-35) Mean Corpuscular Hemoglobin Concent 33 g/dL (31-37) Red Cell Distribution Width 18.7 % (11.5-14.5) Platelet Count 100 x10^3/uL (140-400) Neutrophils (%) (Auto) 2 % (31-73) Lymphocytes (%) (Auto) 48 % (24-48) Monocytes (%) (Auto) 19 % (0-9) Eosinophils (%) (Auto) 31 % (0-3) Basophils (%) (Auto) 0 % (0-3) Neutrophils # (Auto) 0.0 x10^3uL (1.8-7.7) Lymphocytes # (Auto) 0.1 x10^3/uL (1.0-4.8) Monocytes # (Auto) 0.1 x10^3/uL (0.0-1.1) Eosinophils # (Auto) 0.1 x10^3/uL (0.0-0.7) Basophils # (Auto) 0.0 x10^3/uL (0.0-0.2) Sodium Level 139 mmol/L (136-145) Potassium Level 3.9 mmol/L (3.5-5.1) Chloride Level 104 mmol/L (98-107) Carbon Dioxide Level 26 mmol/L (21-32) Anion Gap 9 (6-14) Blood Urea Nitrogen 9 mg/dL (7-20) Creatinine 0.8 mg/dL (0.6-1.0) Estimated GFR (Cockcroft-Gault) 73.2 Glucose Level 109 mg/dL (70-99) Calcium Level 8.2 mg/dL (8.5-10.1) Laboratory Tests Test 11/23/18 12:29 11/23/18 12:30 11/23/18 12:32 11/23/18 12:35 White Blood Count 0.3 x10^3/uL (4.0-11.0) Red Blood Count 4.47 x10^6/uL (3.50-5.40) Hemoglobin 11.8 g/dL (12.0-15.5) Hematocrit 35.9 % (36.0-47.0) Mean Corpuscular Volume 80 fL (79-100) Mean Corpuscular Hemoglobin 27 pg (25-35) Mean Corpuscular Hemoglobin Concent 33 g/dL (31-37) Red Cell Distribution Width 18.6 % (11.5-14.5) Platelet Count 124 x10^3/uL (140-400) Neutrophils (%) (Auto) 1 % (31-73) Lymphocytes (%) (Auto) 62 % (24-48) Monocytes (%) (Auto) 11 % (0-9) Eosinophils (%) (Auto) 26 % (0-3) Basophils (%) (Auto) 0 % (0-3) Neutrophils # (Auto) 0.0 x10^3uL (1.8-7.7) Lymphocytes # (Auto) 0.2 x10^3/uL (1.0-4.8) Monocytes # (Auto) 0.0 x10^3/uL (0.0-1.1) Eosinophils # (Auto) 0.1 x10^3/uL (0.0-0.7) Basophils # (Auto) 0.0 x10^3/uL (0.0-0.2) Segmented Neutrophils % 5 % (35-66) Band Neutrophils % 2 % (0-9) Lymphocytes % 61 % (24-48) Monocytes % 10 % (0-10) Eosinophils % 22 % (0-5) Platelet Estimate Adequate (ADEQUATE) Sodium Level 138 mmol/L (136-145) Potassium Level 3.8 mmol/L (3.5-5.1) Chloride Level 101 mmol/L (98-107) Carbon Dioxide Level 28 mmol/L (21-32) Anion Gap 9 (6-14) Blood Urea Nitrogen 11 mg/dL (7-20) Creatinine 0.8 mg/dL (0.6-1.0) Estimated GFR (Cockcroft-Gault) 73.2 BUN/Creatinine Ratio 14 (6-20) Glucose Level 113 mg/dL (70-99) Lactic Acid Level 1.8 mmol/L (0.4-2.0) Calcium Level 9.0 mg/dL (8.5-10.1) Total Bilirubin 0.8 mg/dL (0.2-1.0) Aspartate Amino Transf (AST/SGOT) 20 U/L (15-37) Alanine Aminotransferase (ALT/SGPT) 56 U/L (14-59) Alkaline Phosphatase 96 U/L (46-116) Troponin I Quantitative < 0.017 ng/mL (0.000-0.055) Total Protein 6.7 g/dL (6.4-8.2) Albumin 4.0 g/dL (3.4-5.0) Albumin/Globulin Ratio 1.5 (1.0-1.7) Procalcitonin < 0.10 ng/mL (0.00-0.10) Urine Collection Type Unknown Urine Color Yellow Urine Clarity Clear Urine pH 7.5 Urine Specific [place] <=1.005 Urine Protein Negative mg/dL (NEG-TRACE) Urine Glucose (UA) Negative mg/dL (NEG) Urine Ketones (Stick) Negative mg/dL (NEG) Urine Blood Negative (NEG) Urine Nitrite Negative (NEG) Urine Bilirubin Negative (NEG) Urine Urobilinogen Dipstick 0.2 mg/dL (0.2 mg/dL) Urine Leukocyte Esterase Negative (NEG) Urine RBC 0 /HPF (0-2) Urine WBC Rare /HPF (0-4) Urine Squamous Epithelial Cells Few /LPF Urine Bacteria 0 /HPF (0-FEW) Influenza Type A Antigen Negative (NEGATIVE) Influenza Type B Antigen Negative (NEGATIVE) Test 11/23/18 16:30 11/24/18 03:15 Lactic Acid Level 1.6 mmol/L (0.4-2.0) White Blood Count 0.3 x10^3/uL (4.0-11.0) Red Blood Count 3.76 x10^6/uL (3.50-5.40) Hemoglobin 9.9 g/dL (12.0-15.5) Hematocrit 30.4 % (36.0-47.0) Mean Corpuscular Volume 81 fL (79-100) Mean Corpuscular Hemoglobin 26 pg (25-35) Mean Corpuscular Hemoglobin Concent 33 g/dL (31-37) Red Cell Distribution Width 18.7 % (11.5-14.5) Platelet Count 100 x10^3/uL (140-400) Neutrophils (%) (Auto) 2 % (31-73) Lymphocytes (%) (Auto) 48 % (24-48) Monocytes (%) (Auto) 19 % (0-9) Eosinophils (%) (Auto) 31 % (0-3) Basophils (%) (Auto) 0 % (0-3) Neutrophils # (Auto) 0.0 x10^3uL (1.8-7.7) Lymphocytes # (Auto) 0.1 x10^3/uL (1.0-4.8) Monocytes # (Auto) 0.1 x10^3/uL (0.0-1.1) Eosinophils # (Auto) 0.1 x10^3/uL (0.0-0.7) Basophils # (Auto) 0.0 x10^3/uL (0.0-0.2) Sodium Level 139 mmol/L (136-145) Potassium Level 3.9 mmol/L (3.5-5.1) Chloride Level 104 mmol/L (98-107) Carbon Dioxide Level 26 mmol/L (21-32) Anion Gap 9 (6-14) Blood Urea Nitrogen 9 mg/dL (7-20) Creatinine 0.8 mg/dL (0.6-1.0) Estimated GFR (Cockcroft-Gault) 73.2 Glucose Level 109 mg/dL (70-99) Calcium Level 8.2 mg/dL (8.5-10.1) Medications Current Medications Sodium Chloride 1,000 ml @ 1,560 mls/hr Q39M IV Last administered on at 12:15; Start 11/23/18 at 12:29; Stop 11/23/18 at 13:29; Status DC Piperacillin Sod/ Tazobactam Sod 4.5 gm/Sodium Chloride 100 ml @ 200 mls/hr 1X ONCE IV Last administered on 11/23/18at 13:20; Start 11/23/18 at 12:30; Stop 11/23/18 at 12:59; Status DC Vancomycin HCl (Vanco Per Pharmacy) 1 each 1X ONCE [facility] ; Start 11/23/18 at 12:30 ; Stop 11/23/18 at 13:58; Status DC Vancomycin HCl 1.5 gm/Sodium Chloride 500 ml @ 250 mls/hr 1X ONCE IV Last administered on 11/23/18at 13:50; Start 11/23/18 at 13:00; Stop 11/23/18 at 14:59 ; Status DC Ondansetron HCl (Zofran) 4 mg PRN Q8HRS PRN IV NAUSEA/VOMITING Last administered on 11/23/18at 21:21; Start 11/23/18 at 15:30; Stop 11/24/18 at 15:29 Morphine Sulfate (Morphine Sulfate) 2 mg PRN Q2HR PRN IV PAIN; Start 11/23/18 at 15:30; Stop 11/24/18 at 15:29 Acetaminophen (Tylenol) 650 mg PRN Q4HRS PRN PO FEVER; Start 11/23/18 at 15:30 ; Stop 11/24/18 at 15:29 Sodium Chloride 1,000 ml @ 125 mls/hr 1X ONCE IV Last administered on at 16:23; Start 11/23/18 at 15:30; Stop 11/23/18 at 23:29; Status DC Multi-Ingredient Mouthwash/Gargle (Magic Mouthwash) 10 ml PRN QID PRN PO MOUTH PAIN; Start 11/23/18 at 16:30 Cefepime HCl (Maxipime) 2 gm BID IVP Last administered on 11/24/18at 09:11; Start 11/23/18 at 21:00 Benzonatate (Tessalon Perle) 100 mg PRN TID PRN PO COUGH Last administered on at 07:00; Start 11/23/18 at 21:45 Acetaminophen (Tylenol) 650 mg PRN Q6HRS PRN PO MILD PAIN / TEMP; Start at 21:45 Diphenhydramine HCl (Benadryl) 25 mg 1X ONCE PO Last administered on at 22:01; Start 11/23/18 at 22:00; Stop 11/23/18 at 22:01; Status DC Active Scripts Active Reported Benadryl (Diphenhydramine Hcl) 25 Mg Capsule 1-2 Cap PO PRN QHS PRN Tylenol (Acetaminophen) 325 Mg Tablet 1-2 Tab PO PRN Q6HRS PRN [place] Thyroid (Thyroid,Pork) 30 Mg Tablet 1 Tab PO DAILY Rituxan (Rituximab) 10 Mg/1 Ml Vial 10 Mg IV PER CHEMO REGIMEN Protonix (Pantoprazole Sodium) 20 Mg Tablet.dr 40 Mg PO DAILY Buspirone Hcl 5 Mg Tablet 1 Tab PO PRN BID PRN Vitals/I & O Vital Sign - Last 24 Hours 11/23/18 11/23/18 11/23/18 11/23/18 12:15 12:21 12:45 13:15 Temp 98.7 98.7 Pulse 87 94 91 83 Resp 20 B/P (MAP) 138/72 (94) 138/72 (94) 129/60 (83) 135/63 (87) Pulse Ox 99 99 99 100 O2 Delivery Room Air Room Air Room Air Room Air 11/23/18 11/23/18 11/23/18 11/23/18 13:45 14:15 14:45 15:15 Pulse 79 82 89 97 Resp 19 B/P (MAP) 130/60 (83) 125/61 (82) 124/60 (81) 143/65 (91) Pulse Ox 100 100 99 100 O2 Delivery Room Air Room Air Room Air Room Air 11/23/18 11/23/18 11/23/18 11/23/18 16:36 19:00 19:30 23:00 Temp 99.1 100.0 99.1 100.0 Pulse 90 116 Resp 17 B/P (MAP) 135/68 (90) 110/62 (78) Pulse Ox 96 96 O2 Delivery Room Air Room Air Room Air Room Air 11/24/18 11/24/18 11/24/18 03:00 07:00 08:00 Temp 99.7 99.2 99.7 99.2 Pulse 107 100 Resp 16 B/P (MAP) 112/57 (75) 115/60 (78) Pulse Ox 96 95 O2 Delivery Room Air Room Air Room Air Intake and Output 11/23/18 11/23/18 11/24/18 14:59 22:59 06:59 Intake Total 250 ml 0 ml Balance 250 ml 0 ml CALLUM ARMIJO MD Nov 24, 2018 11:29
[2018-11-24] MEDS ORDERED: CEFEPIME HCL IV Push 2 GM VIAL. IVP SCH (14:00)
[2018-11-24 15:00] VITALS: BP 115/61
[2018-11-24] MEDS ORDERED: ONDANSETRON PF 4 MG/2 ML VIAL. IV PRN (17:30)
[2018-11-24] MEDS ORDERED: diphenhydrAMINE HCL 25 MG CAPSULE PO PRN (17:45)
[2018-11-24] MEDS ORDERED: busPIRone 5 MG TABLET. PO PRN (17:45)
[2018-11-24] MEDS ORDERED: ACETAMINOPHEN 325 MG TABLET. PO PRN (17:45)
--- NOTE | 2018-11-24 17:48 | PDOC1 ---
History and Physical Date of Admission Date of Admission DATE: 11/24/18 TIME: 17:36 Identification/Chief Complaint Chief Complaint fever Problems: (1) Fever (2) Neutropenia Source Source: Chart review, Patient History of Present Illness History of Present Illness 58 year old hx of of lymphoma currently on cycle 4 of 7 chemo who presents with temp of 100.0 and worsening allergy symptoms. has diarrhea but this is common for her. no other complaints. no headache, cough, congestion, nausea vomiting patient found to be neutropenic with count of 0 bc of chemo. in ER xray and UA negative. flu negative. given vanc and zosyn in ED and admitted to hospitalist service. Past Medical History Past Medical History Diffuse large B cell lymphoma Hypothyroidism HLD OA Hx of stroke Depression ] Family History Family History skin bx, bone marrow bx, hysterectomy Social History Smoke: No ALCOHOL: none Drugs: None Current Problem List Problem List Problems Medical Problems: (1) Fever Status: Acute (2) Neutropenia Status: Acute Current Medications Current Medications Current Medications Sodium Chloride 1,000 ml @ 1,560 mls/hr Q39M IV Last administered on at 12:15; Start 11/23/18 at 12:29; Stop 11/23/18 at 13:29; Status DC Piperacillin Sod/ Tazobactam Sod 4.5 gm/Sodium Chloride 100 ml @ 200 mls/hr 1X ONCE IV Last administered on 11/23/18at 13:20; Start 11/23/18 at 12:30; Stop 11/23/18 at 12:59; Status DC Vancomycin HCl (Vanco Per Pharmacy) 1 each 1X ONCE [facility] ; Start 11/23/18 at 12:30 ; Stop 11/23/18 at 13:58; Status DC Vancomycin HCl 1.5 gm/Sodium Chloride 500 ml @ 250 mls/hr 1X ONCE IV Last administered on 11/23/18at 13:50; Start 11/23/18 at 13:00; Stop 11/23/18 at 14:59 ; Status DC Ondansetron HCl (Zofran) 4 mg PRN Q8HRS PRN IV NAUSEA/VOMITING Last administered on 11/23/18at 21:21; Start 11/23/18 at 15:30; Stop 11/24/18 at 15:29 ; Status DC Morphine Sulfate (Morphine Sulfate) 2 mg PRN Q2HR PRN IV PAIN; Start 11/23/18 at 15:30; Stop 11/24/18 at 15:29; Status DC Acetaminophen (Tylenol) 650 mg PRN Q4HRS PRN PO FEVER; Start 11/23/18 at 15:30 ; Stop 11/24/18 at 15:29; Status DC Sodium Chloride 1,000 ml @ 125 mls/hr 1X ONCE IV Last administered on at 16:23; Start 11/23/18 at 15:30; Stop 11/23/18 at 23:29; Status DC Multi-Ingredient Mouthwash/Gargle (Magic Mouthwash) 10 ml PRN QID PRN PO MOUTH PAIN; Start 11/23/18 at 16:30 Cefepime HCl (Maxipime) 2 gm BID IVP Last administered on 11/24/18at 09:11; Start 11/23/18 at 21:00; Stop 11/24/18 at 13:09; Status DC Benzonatate (Tessalon Perle) 100 mg PRN TID PRN PO COUGH Last administered on at 17:29; Start 11/23/18 at 21:45 Acetaminophen (Tylenol) 650 mg PRN Q6HRS PRN PO MILD PAIN / TEMP; Start at 21:45 Diphenhydramine HCl (Benadryl) 25 mg 1X ONCE PO Last administered on at 22:01; Start 11/23/18 at 22:00; Stop 11/23/18 at 22:01; Status DC Cefepime HCl (Maxipime) 2 gm BID IVP ; Start 11/24/18 at 14:00; Stop 11/24/18 at 14:00; Status DC Cefepime HCl (Maxipime) 2 gm Q8HRS IVP Last administered on 11/24/18at 13:55; Start 11/24/18 at 14:00 Ondansetron HCl (Zofran) 4 mg PRN Q6HRS PRN IV NAUSEA/VOMITING Last administered on 11/24/18at 17:29; Start 11/24/18 at 17:30 Active Scripts Active Reported Benadryl (Diphenhydramine Hcl) 25 Mg Capsule 1-2 Cap PO PRN QHS PRN Tylenol (Acetaminophen) 325 Mg Tablet 1-2 Tab PO PRN Q6HRS PRN [place] Thyroid (Thyroid,Pork) 30 Mg Tablet 1 Tab PO DAILY Rituxan (Rituximab) 10 Mg/1 Ml Vial 10 Mg IV PER CHEMO REGIMEN Protonix (Pantoprazole Sodium) 20 Mg Tablet.dr 40 Mg PO DAILY Buspirone Hcl 5 Mg Tablet 1 Tab PO PRN BID PRN Allergies Allergies: Coded Allergies: thimerosal (Verified Allergy, Intermediate, Itching, 09/12/18) guaifenesin (Verified Adverse Reaction, Intermediate, 11/23/18) Increased heart rate (approx. 125) ROS Review of System CONSTITUTIONAL: No fever or chills EYES: No recent changes SKIN: No rash or itching CARDIOVASCULAR: No chest pain, syncope, palpitations, or edema RESPIRATORY: No SOB or cough GASTROINTESTINAL: No nausea, vomiting or abdominal pain NEUROLOGICAL: No headaches or weakness ENDOCRINE: No cold or heat intolerance GENITOURINARY: No urgency or frequency of urination MUSCULOSKELETAL: No back pain or joint pain LYMPHATICS: No enlarged lymph nodes PSYCHIATRIC: No anxiety or depression Physical Exam Physical Exam GENERAL: No apparent distress. Alert and oriented. HEENT: Head normocephalic, atraumatic. NECK: Supple LUNGS: Clear to auscultation. HEART: RRR, S1, S2 present, pulses intact ABDOMEN: Soft, positive bowel sounds. EXTREMITIES: No cyanosis or edema. NEUROLOGIC: Normal speech, normal tone PSYCHIATRIC: Normal affect, normal mood. SKIN: No ulceration. Vitals Vitals Vital Signs Date Time Temp Pulse Resp B/P (MAP) Pulse Ox O2 Delivery O2 Flow Rate FiO2 11/24/18 15:00 97.8 97 16 115/61 (79) 96 Room Air 97.8 Labs Labs Laboratory Tests Test 11/23/18 12:29 11/23/18 12:30 11/23/18 12:32 11/23/18 12:35 White Blood Count 0.3 x10^3/uL (4.0-11.0) Red Blood Count 4.47 x10^6/uL (3.50-5.40) Hemoglobin 11.8 g/dL (12.0-15.5) Hematocrit 35.9 % (36.0-47.0) Mean Corpuscular Volume 80 fL (79-100) Mean Corpuscular Hemoglobin 27 pg (25-35) Mean Corpuscular Hemoglobin Concent 33 g/dL (31-37) Red Cell Distribution Width 18.6 % (11.5-14.5) Platelet Count 124 x10^3/uL (140-400) Neutrophils (%) (Auto) 1 % (31-73) Lymphocytes (%) (Auto) 62 % (24-48) Monocytes (%) (Auto) 11 % (0-9) Eosinophils (%) (Auto) 26 % (0-3) Basophils (%) (Auto) 0 % (0-3) Neutrophils # (Auto) 0.0 x10^3uL (1.8-7.7) Lymphocytes # (Auto) 0.2 x10^3/uL (1.0-4.8) Monocytes # (Auto) 0.0 x10^3/uL (0.0-1.1) Eosinophils # (Auto) 0.1 x10^3/uL (0.0-0.7) Basophils # (Auto) 0.0 x10^3/uL (0.0-0.2) Segmented Neutrophils % 5 % (35-66) Band Neutrophils % 2 % (0-9) Lymphocytes % 61 % (24-48) Monocytes % 10 % (0-10) Eosinophils % 22 % (0-5) Platelet Estimate Adequate (ADEQUATE) Sodium Level 138 mmol/L (136-145) Potassium Level 3.8 mmol/L (3.5-5.1) Chloride Level 101 mmol/L (98-107) Carbon Dioxide Level 28 mmol/L (21-32) Anion Gap 9 (6-14) Blood Urea Nitrogen 11 mg/dL (7-20) Creatinine 0.8 mg/dL (0.6-1.0) Estimated GFR (Cockcroft-Gault) 73.2 BUN/Creatinine Ratio 14 (6-20) Glucose Level 113 mg/dL (70-99) Lactic Acid Level 1.8 mmol/L (0.4-2.0) Calcium Level 9.0 mg/dL (8.5-10.1) Total Bilirubin 0.8 mg/dL (0.2-1.0) Aspartate Amino Transf (AST/SGOT) 20 U/L (15-37) Alanine Aminotransferase (ALT/SGPT) 56 U/L (14-59) Alkaline Phosphatase 96 U/L (46-116) Troponin I Quantitative < 0.017 ng/mL (0.000-0.055) Total Protein 6.7 g/dL (6.4-8.2) Albumin 4.0 g/dL (3.4-5.0) Albumin/Globulin Ratio 1.5 (1.0-1.7) Procalcitonin < 0.10 ng/mL (0.00-0.10) Urine Collection Type Unknown Urine Color Yellow Urine Clarity Clear Urine pH 7.5 Urine Specific [place] <=1.005 Urine Protein Negative mg/dL (NEG-TRACE) Urine Glucose (UA) Negative mg/dL (NEG) Urine Ketones (Stick) Negative mg/dL (NEG) Urine Blood Negative (NEG) Urine Nitrite Negative (NEG) Urine Bilirubin Negative (NEG) Urine Urobilinogen Dipstick 0.2 mg/dL (0.2 mg/dL) Urine Leukocyte Esterase Negative (NEG) Urine RBC 0 /HPF (0-2) Urine WBC Rare /HPF (0-4) Urine Squamous Epithelial Cells Few /LPF Urine Bacteria 0 /HPF (0-FEW) Influenza Type A Antigen Negative (NEGATIVE) Influenza Type B Antigen Negative (NEGATIVE) Test 11/23/18 16:30 11/24/18 03:15 Lactic Acid Level 1.6 mmol/L (0.4-2.0) White Blood Count 0.3 x10^3/uL (4.0-11.0) Red Blood Count 3.76 x10^6/uL (3.50-5.40) Hemoglobin 9.9 g/dL (12.0-15.5) Hematocrit 30.4 % (36.0-47.0) Mean Corpuscular Volume 81 fL (79-100) Mean Corpuscular Hemoglobin 26 pg (25-35) Mean Corpuscular Hemoglobin Concent 33 g/dL (31-37) Red Cell Distribution Width 18.7 % (11.5-14.5) Platelet Count 100 x10^3/uL (140-400) Neutrophils (%) (Auto) 2 % (31-73) Lymphocytes (%) (Auto) 48 % (24-48) Monocytes (%) (Auto) 19 % (0-9) Eosinophils (%) (Auto) 31 % (0-3) Basophils (%) (Auto) 0 % (0-3) Neutrophils # (Auto) 0.0 x10^3uL (1.8-7.7) Lymphocytes # (Auto) 0.1 x10^3/uL (1.0-4.8) Monocytes # (Auto) 0.1 x10^3/uL (0.0-1.1) Eosinophils # (Auto) 0.1 x10^3/uL (0.0-0.7) Basophils # (Auto) 0.0 x10^3/uL (0.0-0.2) Sodium Level 139 mmol/L (136-145) Potassium Level 3.9 mmol/L (3.5-5.1) Chloride Level 104 mmol/L (98-107) Carbon Dioxide Level 26 mmol/L (21-32) Anion Gap 9 (6-14) Blood Urea Nitrogen 9 mg/dL (7-20) Creatinine 0.8 mg/dL (0.6-1.0) Estimated GFR (Cockcroft-Gault) 73.2 Glucose Level 109 mg/dL (70-99) Calcium Level 8.2 mg/dL (8.5-10.1) Laboratory Tests Test 11/24/18 03:15 White Blood Count 0.3 x10^3/uL (4.0-11.0) Red Blood Count 3.76 x10^6/uL (3.50-5.40) Hemoglobin 9.9 g/dL (12.0-15.5) Hematocrit 30.4 % (36.0-47.0) Mean Corpuscular Volume 81 fL (79-100) Mean Corpuscular Hemoglobin 26 pg (25-35) Mean Corpuscular Hemoglobin Concent 33 g/dL (31-37) Red Cell Distribution Width 18.7 % (11.5-14.5) Platelet Count 100 x10^3/uL (140-400) Neutrophils (%) (Auto) 2 % (31-73) Lymphocytes (%) (Auto) 48 % (24-48) Monocytes (%) (Auto) 19 % (0-9) Eosinophils (%) (Auto) 31 % (0-3) Basophils (%) (Auto) 0 % (0-3) Neutrophils # (Auto) 0.0 x10^3uL (1.8-7.7) Lymphocytes # (Auto) 0.1 x10^3/uL (1.0-4.8) Monocytes # (Auto) 0.1 x10^3/uL (0.0-1.1) Eosinophils # (Auto) 0.1 x10^3/uL (0.0-0.7) Basophils # (Auto) 0.0 x10^3/uL (0.0-0.2) Sodium Level 139 mmol/L (136-145) Potassium Level 3.9 mmol/L (3.5-5.1) Chloride Level 104 mmol/L (98-107) Carbon Dioxide Level 26 mmol/L (21-32) Anion Gap 9 (6-14) Blood Urea Nitrogen 9 mg/dL (7-20) Creatinine 0.8 mg/dL (0.6-1.0) Estimated GFR (Cockcroft-Gault) 73.2 Glucose Level 109 mg/dL (70-99) Calcium Level 8.2 mg/dL (8.5-10.1) VTE Prophylaxis Ordered VTE Prophylaxis Devices: Yes VTE Pharmacological Prophylaxi: Yes Assessment/Plan Assessment/Plan ASSESSMENT Neutropenic Fever B Cell Lymphoma, 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 Pancytopenia Seasonal Allergies PLAN: admit to medical floor bed continue Cefepime follow blood cultures infectious work up so far negative no heparin given thrombocytopenia prn zyrtec for allergies full code dc once fever improved and cx negative Problem Qualifiers (1) Fever: Fever type: unspecified Qualified Codes: R50.9 - Fever, unspecified (2) Neutropenia: Neutropenia type: secondary to cancer chemotherapy Qualified Codes: D70.1 - Agranulocytosis secondary to cancer chemotherapy; T45.1X5A - Adverse effect of antineoplastic and immunosuppressive drugs, initial encounter TYSON HOGUE MD Nov 24, 2018 17:48
[2018-11-24] MEDS ORDERED: CETIRIZINE HCL 10 MG TABLET. PO PRN (18:00)
[2018-11-24 19:00] VITALS: BP 105/62
[2018-11-24] MEDS: HEPARIN for SUB-Q USE 5,000 UNIT/ML VIAL. SQ SCH (22:00)
[2018-11-24 23:00] VITALS: BP 105/55
--- NOTE | 2018-11-25 02:03 | CONS ---
DATE OF CONSULTATION: 11/24/2018 REFERRING PHYSICIAN: Dr. Turner. REASON FOR CONSULTATION: Neutropenic fever. HISTORY OF PRESENT ILLNESS: A 58-year-old female with history of lymphoma, on chemotherapy, last one was last , presented to the ER with complaints of fever of 100.4 at home, which began the day before admission, she also had some chills. She has cough, which she says is baseline from her seasonal allergies, no change, not bringing up any phlegm. Has some headache which she again attributes to seasonal allergies, especially this time of the year, no change. Denies any sore throat, though she has some soreness in the gums, which she attributes to being on chemotherapy. She denies any ear pain or drainage. Denies any difficulty swallowing, chest pain, shortness of breath, chest pain with deep breathing, nausea, vomiting, change in bowel habits, blood in stool, symptoms, sick contact, rash, arthralgias. She took some Tylenol. Upon arrival to the ER, her white count was 0.3 with hemoglobin of 11.8 and platelets of 124. Lactate was 1.8 with procalcitonin of less than 0.10. UA was negative. Chest x-ray did not show any acute infiltrate. Influenza screen was negative. She received IV vancomycin and Zosyn, was admitted to the medical floor. She was started on empiric cefepime. ID consult has been requested for antibiotic management. Today, the patient says she feels about the same, still feels very tired. Does continues to have dry cough, which she attributes to allergic rhinitis. Does have some headache, but not worsened. Denies any trouble with vision, ear pain, drainage. Continues to have loose bowel movements, which is baseline since she has been on chemo. Does have some jaw discomfort which she attributes to the chemotherapy that has been on. She has a Port-A-Cath in place, which was placed last April. Does not have any issues with the same. Denies any recent travel, immunization, new medication. PAST MEDICAL HISTORY: Lymphoma, on chemotherapy through Port-A-Cath in the right chest with CHOP therapy; hypothyroidism; seasonal allergies; hyperlipidemia; osteoarthritis; depression; history of stroke. PAST SURGICAL HISTORY: Hysterectomy. ALLERGIES: THIMEROSAL, GUAIFENESIN. CURRENT MEDICATION: IV cefepime, status post one dose of IV vancomycin and Zosyn in ER. Other medications reviewed in medication list. SOCIAL HISTORY: . Denies smoking, ETOH or illicit drug use. Lives with . No pets. FAMILY HISTORY: As per HPI. REVIEW OF SYSTEMS: Negative except for above in HPI. PHYSICAL EXAMINATION: VITAL SIGNS: Temperature 99.2, T-max 100, pulse 100, respiratory rate 16, blood pressure 115/60, oxygen saturation 95% on room air. GENERAL: Alert, oriented, pleasant female, lying in bed comfortably, in no acute distress, cooperative. HEENT: Normocephalic, atraumatic, anicteric. No thrush. Oral mucosa moist. No oropharyngeal exudate. NECK: Supple, no JVD. LUNGS: Clear bilaterally. No wheezing. HEART: S1, S2, no gallops or murmurs. ABDOMEN: Soft, nontender, nondistended, no rebound or guarding. EXTREMITIES: No edema, no cyanosis, no clubbing. DERMATOLOGIC: Warm, dry. No generalized skin rash. LINES: Right chest Port-A-Cath clean without any evidence of inflammation. NEUROLOGIC: Alert and oriented x 3. Grossly nonfocal. PSYCHIATRIC: Cooperative, appropriate mood and affect. LABORATORY DATA: WBC 0.3, ANC 0, hemoglobin 11.8, platelets 124, neutrophil 1, lymphocytes 62%, mono 11, eosinophils 26%, segments 5. Sodium 139, potassium 3.9, chloride 104, bicarbonate 26, BUN 9, creatinine 0.8, glucose 109, lactate 1.6, calcium 8.2. Troponin less than 0.017, procalcitonin less than 1.0. UA negative. IMAGING: Chest x-ray: No acute cardiopulmonary process. IMPRESSION: 1. Neutropenic fever. 2. Lymphoma on Chemotherapy 3 Seasonal allergies. 4. Headache, dry cough, which she attributes to allergies. No change in her symptoms. 5 Diarrhea, chronic since she has been on chemotherapy. 6. Increased sensitivity in the mouth since she has been on chemotherapy. 7. Eosinophilia. 8 Lymphocytosis. 9. Influenza screen negative. RECOMMENDATIONS: 1. Continue empiric cefepime. 2. Respiratory viral panel, EBV quantitative PCR, CMV quantitative PCR, HSV PCR are not available per administration at this center. We will order CMV IgM, IgG; EBV IgM, IgG and HSV IgM, IgG for now 3. Continue Magic mouthwash. 4. Continue supportive care. 5. Follow up labs in a.m. and cultures. 6. Send stool for ova and parasite due to eosinophilia. Thank you for allowing me to participate in this patient's care. We will follow along with you. Discussed with at bedside. Discussed with RN. ISABELL FLORIAN MD DR: RODRIGO/anna JOB#: [id number] / [id number] KRIS
[2018-11-25 03:00] VITALS: BP 92/59
[2018-11-25] MEDS: CEFEPIME HCL IV Push 2 GM VIAL. IVP SCH (05:43)
[2018-11-25] MEDS: HEPARIN for SUB-Q USE 5,000 UNIT/ML VIAL. SQ SCH (05:43)
[2018-11-25 07:00] VITALS: BP 104/60
[2018-11-25] MEDS ORDERED: PANTOPRAZOLE 40 MG TABLET.DR. PO SCH (07:30)
[2018-11-25] MEDS ORDERED: THYROID,PORK 60 MG TABLET PO SCH (09:00)
--- NOTE | 2018-11-25 09:18 | NUR ---
SW following pt for anticipated dc needs. Chart reviewed and DW RN. Pt lives at home with spouse. PT/OT pending, ID also following pt. SW will await for dc recommendations.
--- NOTE | 2018-11-25 10:11 | PDOC ---
Infectious Disease Note Subjective: Subjective pt without complaints feeling better eager for dc home ROS: ROS Negative except for above. Vital Signs: Vital Signs Vital Signs Date Time Temp Pulse Resp B/P (MAP) Pulse Ox O2 Delivery O2 Flow Rate FiO2 11/25/18 07:00 98.7 76 18 104/60 (75) 96 Room Air 98.7 Physical Exam: PHYSICAL EXAM GENERAL: Alert, oriented, pleasant female, lying in bed comfortably, in no acute distress, cooperative. HEENT: Normocephalic, atraumatic, anicteric. No thrush. Oral mucosa moist. No oropharyngeal exudate. NECK: Supple, no JVD. LUNGS: Clear bilaterally. No wheezing. HEART: S1, S2, no gallops or murmurs. ABDOMEN: Soft, nontender, nondistended, no rebound or guarding. EXTREMITIES: No edema, no cyanosis, no clubbing. DERMATOLOGIC: Warm, dry. No generalized skin rash. LINES: Right chest Port-A-Cath clean without any evidence of inflammation. NEUROLOGIC: Alert and oriented x 3. Grossly nonfocal. PSYCHIATRIC: Cooperative, appropriate mood and affect. Medications: Inpatient Meds: Current Medications Medications (Trade) Dose Ordered Sig/Anne Start Time Stop Time Status Last Admin Dose Admin Acetaminophen (Tylenol) 650 mg PRN Q6HRS PRN 11/24/18 17:45 Benzonatate (Tessalon Perle) 100 mg PRN TID PRN 11/23/18 21:45 11/24/18 17:29 100 MG Buspirone HCl (Buspar) 5 mg PRN BID PRN 11/24/18 17:45 Cefepime HCl (Maxipime) 2 gm Q8HRS 11/24/18 14:00 11/25/18 05:43 2 GM Cetirizine HCl (ZyrTEC) 10 mg PRN DAILY PRN 11/24/18 18:00 Diphenhydramine HCl (Benadryl) 25 mg PRN QHS PRN 11/24/18 17:45 Heparin Sodium (Porcine) (Heparin Sodium) 5,000 unit Q8HRS 11/24/18 22:00 Morphine Sulfate (Morphine Sulfate) 2 mg PRN Q2HR PRN 11/23/18 15:30 11/24/18 15:29 DC Multi-Ingredient Mouthwash/Gargle (Magic Mouthwash) 10 ml PRN QID PRN 11/23/18 16:30 Ondansetron HCl (Zofran) 4 mg PRN Q6HRS PRN 11/24/18 17:30 11/24/18 17:29 4 MG Pantoprazole Sodium (Protonix) 40 mg DAILYAC 11/25/18 07:30 11/25/18 08:18 40 MG Piperacillin Sod/ Tazobactam Sod 4.5 gm/Sodium Chloride 100 ml @ 200 mls/hr 1X ONCE 11/23/18 12:30 11/23/18 12:59 DC 11/23/18 13:20 200 MLS/HR Sodium Chloride 1,000 ml @ 125 mls/hr 1X ONCE 11/23/18 15:30 11/23/18 23:29 DC 11/23/18 16:23 125 MLS/HR Thyroid ([place] Thyroid) 30 mg DAILY 11/25/18 09:00 11/25/18 08:18 30 MG Vancomycin HCl (Vanco Per Pharmacy) 1 each 1X ONCE 11/23/18 12:30 11/23/18 13:58 DC Vancomycin HCl 1.5 gm/Sodium Chloride 500 ml @ 250 mls/hr 1X ONCE 11/23/18 13:00 11/23/18 14:59 DC 11/23/18 13:50 250 MLS/HR Labs: Micro cults neg serologies pending Objective: Assessment: 1. Neutropenic fever.resolved, 2. Lymphoma on Chemotherapy 3 Seasonal allergies. 4. Headache, dry cough, which she attributes to allergies. No change in her symptoms. 5 Diarrhea, chronic since she has been on chemotherapy. 6. Increased sensitivity in the mouth since she has been on chemotherapy. 7. Eosinophilia. 8 Lymphocytosis. 9. Influenza screen negative. Plan: Plan of Care OK to dc on augmentin for 7 days magic mouthwash f/u infectious disease serologies, call us with any questions ISABELL FLORIAN MD Nov 25, 2018 10:11
[2018-11-25 11:00] VITALS: BP 110/68
--- NOTE | 2018-11-25 11:21 | PDOC ---
PROGRESS NOTES Subjective Subjective HPI - f/u of stage IE diffuse large B-cell lymphoma ROS - no fever Objective Objective Vital Signs Date Time Temp Pulse Resp B/P (MAP) Pulse Ox O2 Delivery O2 Flow Rate FiO2 11/25/18 07:00 98.7 76 18 104/60 (75) 96 Room Air 98.7 Intake and Output 11/25/18 07:00 Intake Total 140 ml Output Total 5 ml Balance 135 ml Intake Oral 140 ml Output Urine Total 5 ml Physical Exam Heart: Normal S1, Normal S2 General: Alert, Oriented X3 Lungs: Clear to auscultation Neuro: Normal speech Psych/Mental Status: Mental status NL Assessment Assessment Problems Medical Problems: (1) Fever Status: Acute (2) Neutropenia Status: Acute Assessment and Plan: She is a 58-year-old female with stage IE diffuse large B- cell lymphoma, cycle 4 day 8 of CHOP R plus Neulasta given on 18 November, admitted with a temperature of 100.0 at home and neutrophils of 0 and sinus symptoms she attributes to allergies. She was given Zosyn and vancomycin in the ER. 1. Neutropenia with low-grade fever and sinus symptoms: Consulted ID, I d/w Dr Gonzales. Resolved. Agree to d/c home. I d/w Dr Noriega, no need to wait for WBC to improve. 2. Mouth tenderness: Continue Magic mouthwash as needed 3. stage IE diffuse large B-cell lymphoma, s/p cycle 4 of CHOP R plus Neulasta . Comment Review of Relevant I have reviewed the following items afsaneh (where applicable) has been applied. Labs Laboratory Tests Test 11/23/18 12:29 11/23/18 12:30 11/23/18 12:32 11/23/18 12:35 White Blood Count 0.3 x10^3/uL (4.0-11.0) Red Blood Count 4.47 x10^6/uL (3.50-5.40) Hemoglobin 11.8 g/dL (12.0-15.5) Hematocrit 35.9 % (36.0-47.0) Mean Corpuscular Volume 80 fL (79-100) Mean Corpuscular Hemoglobin 27 pg (25-35) Mean Corpuscular Hemoglobin Concent 33 g/dL (31-37) Red Cell Distribution Width 18.6 % (11.5-14.5) Platelet Count 124 x10^3/uL (140-400) Neutrophils (%) (Auto) 1 % (31-73) Lymphocytes (%) (Auto) 62 % (24-48) Monocytes (%) (Auto) 11 % (0-9) Eosinophils (%) (Auto) 26 % (0-3) Basophils (%) (Auto) 0 % (0-3) Neutrophils # (Auto) 0.0 x10^3uL (1.8-7.7) Lymphocytes # (Auto) 0.2 x10^3/uL (1.0-4.8) Monocytes # (Auto) 0.0 x10^3/uL (0.0-1.1) Eosinophils # (Auto) 0.1 x10^3/uL (0.0-0.7) Basophils # (Auto) 0.0 x10^3/uL (0.0-0.2) Segmented Neutrophils % 5 % (35-66) Band Neutrophils % 2 % (0-9) Lymphocytes % 61 % (24-48) Monocytes % 10 % (0-10) Eosinophils % 22 % (0-5) Platelet Estimate Adequate (ADEQUATE) Sodium Level 138 mmol/L (136-145) Potassium Level 3.8 mmol/L (3.5-5.1) Chloride Level 101 mmol/L (98-107) Carbon Dioxide Level 28 mmol/L (21-32) Anion Gap 9 (6-14) Blood Urea Nitrogen 11 mg/dL (7-20) Creatinine 0.8 mg/dL (0.6-1.0) Estimated GFR (Cockcroft-Gault) 73.2 BUN/Creatinine Ratio 14 (6-20) Glucose Level 113 mg/dL (70-99) Lactic Acid Level 1.8 mmol/L (0.4-2.0) Calcium Level 9.0 mg/dL (8.5-10.1) Total Bilirubin 0.8 mg/dL (0.2-1.0) Aspartate Amino Transf (AST/SGOT) 20 U/L (15-37) Alanine Aminotransferase (ALT/SGPT) 56 U/L (14-59) Alkaline Phosphatase 96 U/L (46-116) Troponin I Quantitative < 0.017 ng/mL (0.000-0.055) Total Protein 6.7 g/dL (6.4-8.2) Albumin 4.0 g/dL (3.4-5.0) Albumin/Globulin Ratio 1.5 (1.0-1.7) Procalcitonin < 0.10 ng/mL (0.00-0.10) Urine Collection Type Unknown Urine Color Yellow Urine Clarity Clear Urine pH 7.5 Urine Specific [place] <=1.005 Urine Protein Negative mg/dL (NEG-TRACE) Urine Glucose (UA) Negative mg/dL (NEG) Urine Ketones (Stick) Negative mg/dL (NEG) Urine Blood Negative (NEG) Urine Nitrite Negative (NEG) Urine Bilirubin Negative (NEG) Urine Urobilinogen Dipstick 0.2 mg/dL (0.2 mg/dL) Urine Leukocyte Esterase Negative (NEG) Urine RBC 0 /HPF (0-2) Urine WBC Rare /HPF (0-4) Urine Squamous Epithelial Cells Few /LPF Urine Bacteria 0 /HPF (0-FEW) Influenza Type A Antigen Negative (NEGATIVE) Influenza Type B Antigen Negative (NEGATIVE) Test 11/23/18 16:30 11/24/18 03:15 Lactic Acid Level 1.6 mmol/L (0.4-2.0) White Blood Count 0.3 x10^3/uL (4.0-11.0) Red Blood Count 3.76 x10^6/uL (3.50-5.40) Hemoglobin 9.9 g/dL (12.0-15.5) Hematocrit 30.4 % (36.0-47.0) Mean Corpuscular Volume 81 fL (79-100) Mean Corpuscular Hemoglobin 26 pg (25-35) Mean Corpuscular Hemoglobin Concent 33 g/dL (31-37) Red Cell Distribution Width 18.7 % (11.5-14.5) Platelet Count 100 x10^3/uL (140-400) Neutrophils (%) (Auto) 2 % (31-73) Lymphocytes (%) (Auto) 48 % (24-48) Monocytes (%) (Auto) 19 % (0-9) Eosinophils (%) (Auto) 31 % (0-3) Basophils (%) (Auto) 0 % (0-3) Neutrophils # (Auto) 0.0 x10^3uL (1.8-7.7) Lymphocytes # (Auto) 0.1 x10^3/uL (1.0-4.8) Monocytes # (Auto) 0.1 x10^3/uL (0.0-1.1) Eosinophils # (Auto) 0.1 x10^3/uL (0.0-0.7) Basophils # (Auto) 0.0 x10^3/uL (0.0-0.2) Sodium Level 139 mmol/L (136-145) Potassium Level 3.9 mmol/L (3.5-5.1) Chloride Level 104 mmol/L (98-107) Carbon Dioxide Level 26 mmol/L (21-32) Anion Gap 9 (6-14) Blood Urea Nitrogen 9 mg/dL (7-20) Creatinine 0.8 mg/dL (0.6-1.0) Estimated GFR (Cockcroft-Gault) 73.2 Glucose Level 109 mg/dL (70-99) Calcium Level 8.2 mg/dL (8.5-10.1) Microbiology 11/23/18 Blood Culture - Preliminary, Resulted NO GROWTH AFTER 1 DAY Medications Current Medications Sodium Chloride 1,000 ml @ 1,560 mls/hr Q39M IV Last administered on at 12:15; Start 11/23/18 at 12:29; Stop 11/23/18 at 13:29; Status DC Piperacillin Sod/ Tazobactam Sod 4.5 gm/Sodium Chloride 100 ml @ 200 mls/hr 1X ONCE IV Last administered on 11/23/18at 13:20; Start 11/23/18 at 12:30; Stop 11/23/18 at 12:59; Status DC Vancomycin HCl (Vanco Per Pharmacy) 1 each 1X ONCE MC ; Start 11/23/18 at 12:30 ; Stop 11/23/18 at 13:58; Status DC Vancomycin HCl 1.5 gm/Sodium Chloride 500 ml @ 250 mls/hr 1X ONCE IV Last administered on 11/23/18at 13:50; Start 11/23/18 at 13:00; Stop 11/23/18 at 14:59 ; Status DC Ondansetron HCl (Zofran) 4 mg PRN Q8HRS PRN IV NAUSEA/VOMITING Last administered on 11/23/18at 21:21; Start 11/23/18 at 15:30; Stop 11/24/18 at 15:29 ; Status DC Morphine Sulfate (Morphine Sulfate) 2 mg PRN Q2HR PRN IV PAIN; Start 11/23/18 at 15:30; Stop 11/24/18 at 15:29; Status DC Acetaminophen (Tylenol) 650 mg PRN Q4HRS PRN PO FEVER; Start 11/23/18 at 15:30 ; Stop 11/24/18 at 15:29; Status DC Sodium Chloride 1,000 ml @ 125 mls/hr 1X ONCE IV Last administered on at 16:23; Start 11/23/18 at 15:30; Stop 11/23/18 at 23:29; Status DC Multi-Ingredient Mouthwash/Gargle (Magic Mouthwash) 10 ml PRN QID PRN PO MOUTH PAIN; Start 11/23/18 at 16:30 Cefepime HCl (Maxipime) 2 gm BID IVP Last administered on 11/24/18at 09:11; Start 11/23/18 at 21:00; Stop 11/24/18 at 13:09; Status DC Benzonatate (Tessalon Perle) 100 mg PRN TID PRN PO COUGH Last administered on at 17:29; Start 11/23/18 at 21:45 Acetaminophen (Tylenol) 650 mg PRN Q6HRS PRN PO MILD PAIN / TEMP; Start at 21:45 Diphenhydramine HCl (Benadryl) 25 mg 1X ONCE PO Last administered on at 22:01; Start 11/23/18 at 22:00; Stop 11/23/18 at 22:01; Status DC Cefepime HCl (Maxipime) 2 gm BID IVP ; Start 11/24/18 at 14:00; Stop 11/24/18 at 14:00; Status DC Cefepime HCl (Maxipime) 2 gm Q8HRS IVP Last administered on 11/25/18at 05:43; Start 11/24/18 at 14:00 Ondansetron HCl (Zofran) 4 mg PRN Q6HRS PRN IV NAUSEA/VOMITING Last administered on 11/24/18at 17:29; Start 11/24/18 at 17:30 Acetaminophen (Tylenol) 650 mg PRN Q6HRS PRN PO MILD PAIN / TEMP; Start at 17:45 Buspirone HCl (Buspar) 5 mg PRN BID PRN PO ANXIETY; Start 11/24/18 at 17:45 Diphenhydramine HCl (Benadryl) 25 mg PRN QHS PRN PO INSOMNIA; Start 11/24/18 at 17:45 Pantoprazole Sodium (Protonix) 40 mg DAILYAC PO Last administered on 11/25/18at 08:18; Start 11/25/18 at 07:30 Thyroid ([place] Thyroid) 30 mg DAILY PO Last administered on 11/25/18at 08:18; Start 11/25/18 at 09:00 Heparin Sodium (Porcine) (Heparin Sodium) 5,000 unit Q8HRS SQ ; Start 11/24/18 at 22:00 Cetirizine HCl (ZyrTEC) 10 mg PRN DAILY PRN PO ALLERGIES; Start 11/24/18 at 18: 00 Active Scripts Active Reported Benadryl (Diphenhydramine Hcl) 25 Mg Capsule 1-2 Cap PO PRN QHS PRN Tylenol (Acetaminophen) 325 Mg Tablet 1-2 Tab PO PRN Q6HRS PRN [place] Thyroid (Thyroid,Pork) 30 Mg Tablet 1 Tab PO DAILY Rituxan (Rituximab) 10 Mg/1 Ml Vial 10 Mg IV PER CHEMO REGIMEN Protonix (Pantoprazole Sodium) 20 Mg Tablet.dr 40 Mg PO DAILY Buspirone Hcl 5 Mg Tablet 1 Tab PO PRN BID PRN Vitals/I & O Vital Sign - Last 24 Hours 11/24/18 11/24/18 11/24/18 11/24/18 15:00 19:00 19:30 23:00 Temp 97.8 97.7 97.9 97.8 97.7 97.9 Pulse 97 85 89 Resp 16 16 16 B/P (MAP) 115/61 (79) 105/62 (76) 105/55 (72) Pulse Ox 96 98 98 O2 Delivery Room Air Room Air Room Air Room Air 11/25/18 11/25/18 03:00 07:00 Temp 98.0 98.7 98.0 98.7 Pulse 87 76 Resp 16 18 B/P (MAP) 92/59 (70) 104/60 (75) Pulse Ox 98 96 O2 Delivery Room Air Room Air Intake and Output 11/24/18 11/24/18 11/25/18 15:00 23:00 07:00 Intake Total 140 ml Output Total 2 ml 3 ml Balance -2 ml 137 ml CALLUM ARMIJO MD Nov 25, 2018 11:21
--- NOTE | 2018-11-25 11:56 | PDOC ---
PROGRESS NOTES Chief Complaint Chief Complaint Fever History of Present Illness History of Present Illness Patient resting comfortably in bed, no complaints. She hopes to be discharging home today. Vitals Vitals Vital Signs Date Time Temp Pulse Resp B/P (MAP) Pulse Ox O2 Delivery O2 Flow Rate FiO2 11/25/18 11:00 98.7 80 18 110/68 (82) 96 Room Air 98.7 Physical Exam Physical Exam GENERAL: Alert, oriented, pleasant female, lying in bed comfortably, in no acute distress, cooperative. HEENT: Normocephalic, atraumatic, anicteric. No thrush. Oral mucosa moist. No oropharyngeal exudate. NECK: Supple, no JVD. LUNGS: Clear bilaterally. No wheezing. HEART: S1, S2, no gallops or murmurs. ABDOMEN: Soft, nontender, nondistended, no rebound or guarding. EXTREMITIES: No edema, no cyanosis, no clubbing. DERMATOLOGIC: Warm, dry. No generalized skin rash. LINES: Right chest Port-A-Cath clean without any evidence of inflammation. NEUROLOGIC: Alert and oriented x 3. Grossly nonfocal. PSYCHIATRIC: Cooperative, appropriate mood and affect. General: Alert, Oriented X3, No acute distress Heart: Normal S1, Normal S2 Lungs: Clear Abdomen: Normal bowel sounds, Soft, No tenderness Extremities: No clubbing, No cyanosis, No edema Skin: No rashes, No breakdown, No significant lesion Review of Systems Review of Systems as per above Assessment and Plan Assessmemt and Plan Problems Medical Problems: (1) Fever Status: Acute (2) Neutropenia Status: Acute Assessment: Neutropenic fever Pancytopenia Diffuse Large B cell Lymphoma - on R-CHOP with Neulasta, cycle 4 of 7, last dose 11/18/18 Diarrhea, chronic Mucositis, mouth Hypothyroidism, history of Hyperlipidemia, history of Plan: Discussed with edin Paige to discharge home today Antibiotics per ID - on IV cefepime Micro: BCx 11/23 - no growth ID work up pending: CMV, EBV, HSV, Ova & Parasites, resp viral panel Disposition: Discharge home if okay with ID, antibiotics per ID Comment Review of Relevant I have reviewed the following items afsaneh (where applicable) has been applied. Labs Laboratory Tests Test 11/23/18 12:29 11/23/18 12:30 11/23/18 12:32 11/23/18 12:35 White Blood Count 0.3 x10^3/uL (4.0-11.0) Red Blood Count 4.47 x10^6/uL (3.50-5.40) Hemoglobin 11.8 g/dL (12.0-15.5) Hematocrit 35.9 % (36.0-47.0) Mean Corpuscular Volume 80 fL (79-100) Mean Corpuscular Hemoglobin 27 pg (25-35) Mean Corpuscular Hemoglobin Concent 33 g/dL (31-37) Red Cell Distribution Width 18.6 % (11.5-14.5) Platelet Count 124 x10^3/uL (140-400) Neutrophils (%) (Auto) 1 % (31-73) Lymphocytes (%) (Auto) 62 % (24-48) Monocytes (%) (Auto) 11 % (0-9) Eosinophils (%) (Auto) 26 % (0-3) Basophils (%) (Auto) 0 % (0-3) Neutrophils # (Auto) 0.0 x10^3uL (1.8-7.7) Lymphocytes # (Auto) 0.2 x10^3/uL (1.0-4.8) Monocytes # (Auto) 0.0 x10^3/uL (0.0-1.1) Eosinophils # (Auto) 0.1 x10^3/uL (0.0-0.7) Basophils # (Auto) 0.0 x10^3/uL (0.0-0.2) Segmented Neutrophils % 5 % (35-66) Band Neutrophils % 2 % (0-9) Lymphocytes % 61 % (24-48) Monocytes % 10 % (0-10) Eosinophils % 22 % (0-5) Platelet Estimate Adequate (ADEQUATE) Sodium Level 138 mmol/L (136-145) Potassium Level 3.8 mmol/L (3.5-5.1) Chloride Level 101 mmol/L (98-107) Carbon Dioxide Level 28 mmol/L (21-32) Anion Gap 9 (6-14) Blood Urea Nitrogen 11 mg/dL (7-20) Creatinine 0.8 mg/dL (0.6-1.0) Estimated GFR (Cockcroft-Gault) 73.2 BUN/Creatinine Ratio 14 (6-20) Glucose Level 113 mg/dL (70-99) Lactic Acid Level 1.8 mmol/L (0.4-2.0) Calcium Level 9.0 mg/dL (8.5-10.1) Total Bilirubin 0.8 mg/dL (0.2-1.0) Aspartate Amino Transf (AST/SGOT) 20 U/L (15-37) Alanine Aminotransferase (ALT/SGPT) 56 U/L (14-59) Alkaline Phosphatase 96 U/L (46-116) Troponin I Quantitative < 0.017 ng/mL (0.000-0.055) Total Protein 6.7 g/dL (6.4-8.2) Albumin 4.0 g/dL (3.4-5.0) Albumin/Globulin Ratio 1.5 (1.0-1.7) Procalcitonin < 0.10 ng/mL (0.00-0.10) Urine Collection Type Unknown Urine Color Yellow Urine Clarity Clear Urine pH 7.5 Urine Specific [place] <=1.005 Urine Protein Negative mg/dL (NEG-TRACE) Urine Glucose (UA) Negative mg/dL (NEG) Urine Ketones (Stick) Negative mg/dL (NEG) Urine Blood Negative (NEG) Urine Nitrite Negative (NEG) Urine Bilirubin Negative (NEG) Urine Urobilinogen Dipstick 0.2 mg/dL (0.2 mg/dL) Urine Leukocyte Esterase Negative (NEG) Urine RBC 0 /HPF (0-2) Urine WBC Rare /HPF (0-4) Urine Squamous Epithelial Cells Few /LPF Urine Bacteria 0 /HPF (0-FEW) Influenza Type A Antigen Negative (NEGATIVE) Influenza Type B Antigen Negative (NEGATIVE) Test 11/23/18 16:30 11/24/18 03:15 Lactic Acid Level 1.6 mmol/L (0.4-2.0) White Blood Count 0.3 x10^3/uL (4.0-11.0) Red Blood Count 3.76 x10^6/uL (3.50-5.40) Hemoglobin 9.9 g/dL (12.0-15.5) Hematocrit 30.4 % (36.0-47.0) Mean Corpuscular Volume 81 fL (79-100) Mean Corpuscular Hemoglobin 26 pg (25-35) Mean Corpuscular Hemoglobin Concent 33 g/dL (31-37) Red Cell Distribution Width 18.7 % (11.5-14.5) Platelet Count 100 x10^3/uL (140-400) Neutrophils (%) (Auto) 2 % (31-73) Lymphocytes (%) (Auto) 48 % (24-48) Monocytes (%) (Auto) 19 % (0-9) Eosinophils (%) (Auto) 31 % (0-3) Basophils (%) (Auto) 0 % (0-3) Neutrophils # (Auto) 0.0 x10^3uL (1.8-7.7) Lymphocytes # (Auto) 0.1 x10^3/uL (1.0-4.8) Monocytes # (Auto) 0.1 x10^3/uL (0.0-1.1) Eosinophils # (Auto) 0.1 x10^3/uL (0.0-0.7) Basophils # (Auto) 0.0 x10^3/uL (0.0-0.2) Sodium Level 139 mmol/L (136-145) Potassium Level 3.9 mmol/L (3.5-5.1) Chloride Level 104 mmol/L (98-107) Carbon Dioxide Level 26 mmol/L (21-32) Anion Gap 9 (6-14) Blood Urea Nitrogen 9 mg/dL (7-20) Creatinine 0.8 mg/dL (0.6-1.0) Estimated GFR (Cockcroft-Gault) 73.2 Glucose Level 109 mg/dL (70-99) Calcium Level 8.2 mg/dL (8.5-10.1) Microbiology 11/23/18 Blood Culture - Preliminary, Resulted NO GROWTH AFTER 1 DAY Medications Current Medications Sodium Chloride 1,000 ml @ 1,560 mls/hr Q39M IV Last administered on at 12:15; Start 11/23/18 at 12:29; Stop 11/23/18 at 13:29; Status DC Piperacillin Sod/ Tazobactam Sod 4.5 gm/Sodium Chloride 100 ml @ 200 mls/hr 1X ONCE IV Last administered on 11/23/18at 13:20; Start 11/23/18 at 12:30; Stop 11/23/18 at 12:59; Status DC Vancomycin HCl (Vanco Per Pharmacy) 1 each 1X ONCE [facility] ; Start 11/23/18 at 12:30 ; Stop 11/23/18 at 13:58; Status DC Vancomycin HCl 1.5 gm/Sodium Chloride 500 ml @ 250 mls/hr 1X ONCE IV Last administered on 11/23/18at 13:50; Start 11/23/18 at 13:00; Stop 11/23/18 at 14:59 ; Status DC Ondansetron HCl (Zofran) 4 mg PRN Q8HRS PRN IV NAUSEA/VOMITING Last administered on 11/23/18at 21:21; Start 11/23/18 at 15:30; Stop 11/24/18 at 15:29 ; Status DC Morphine Sulfate (Morphine Sulfate) 2 mg PRN Q2HR PRN IV PAIN; Start 11/23/18 at 15:30; Stop 11/24/18 at 15:29; Status DC Acetaminophen (Tylenol) 650 mg PRN Q4HRS PRN PO FEVER; Start 11/23/18 at 15:30 ; Stop 11/24/18 at 15:29; Status DC Sodium Chloride 1,000 ml @ 125 mls/hr 1X ONCE IV Last administered on at 16:23; Start 11/23/18 at 15:30; Stop 11/23/18 at 23:29; Status DC Multi-Ingredient Mouthwash/Gargle (Magic Mouthwash) 10 ml PRN QID PRN PO MOUTH PAIN; Start 11/23/18 at 16:30 Cefepime HCl (Maxipime) 2 gm BID IVP Last administered on 11/24/18at 09:11; Start 11/23/18 at 21:00; Stop 11/24/18 at 13:09; Status DC Benzonatate (Tessalon Perle) 100 mg PRN TID PRN PO COUGH Last administered on at 17:29; Start 11/23/18 at 21:45 Acetaminophen (Tylenol) 650 mg PRN Q6HRS PRN PO MILD PAIN / TEMP; Start at 21:45 Diphenhydramine HCl (Benadryl) 25 mg 1X ONCE PO Last administered on at 22:01; Start 11/23/18 at 22:00; Stop 11/23/18 at 22:01; Status DC Cefepime HCl (Maxipime) 2 gm BID IVP ; Start 11/24/18 at 14:00; Stop 11/24/18 at 14:00; Status DC Cefepime HCl (Maxipime) 2 gm Q8HRS IVP Last administered on 11/25/18at 05:43; Start 11/24/18 at 14:00 Ondansetron HCl (Zofran) 4 mg PRN Q6HRS PRN IV NAUSEA/VOMITING Last administered on 11/24/18at 17:29; Start 11/24/18 at 17:30 Acetaminophen (Tylenol) 650 mg PRN Q6HRS PRN PO MILD PAIN / TEMP; Start at 17:45 Buspirone HCl (Buspar) 5 mg PRN BID PRN PO ANXIETY; Start 11/24/18 at 17:45 Diphenhydramine HCl (Benadryl) 25 mg PRN QHS PRN PO INSOMNIA; Start 11/24/18 at 17:45 Pantoprazole Sodium (Protonix) 40 mg DAILYAC PO Last administered on 11/25/18at 08:18; Start 11/25/18 at 07:30 Thyroid ([place] Thyroid) 30 mg DAILY PO Last administered on 11/25/18at 08:18; Start 11/25/18 at 09:00 Heparin Sodium (Porcine) (Heparin Sodium) 5,000 unit Q8HRS SQ ; Start 11/24/18 at 22:00 Cetirizine HCl (ZyrTEC) 10 mg PRN DAILY PRN PO ALLERGIES; Start 11/24/18 at 18: 00 Active Scripts Active Reported Benadryl (Diphenhydramine Hcl) 25 Mg Capsule 1-2 Cap PO PRN QHS PRN Tylenol (Acetaminophen) 325 Mg Tablet 1-2 Tab PO PRN Q6HRS PRN [place] Thyroid (Thyroid,Pork) 30 Mg Tablet 1 Tab PO DAILY Rituxan (Rituximab) 10 Mg/1 Ml Vial 10 Mg IV PER CHEMO REGIMEN Protonix (Pantoprazole Sodium) 20 Mg Tablet.dr 40 Mg PO DAILY Buspirone Hcl 5 Mg Tablet 1 Tab PO PRN BID PRN Vitals/I & O Vital Sign - Last 24 Hours 11/24/18 11/24/18 11/24/18 11/24/18 15:00 19:00 19:30 23:00 Temp 97.8 97.7 97.9 97.8 97.7 97.9 Pulse 97 85 89 Resp 16 16 16 B/P (MAP) 115/61 (79) 105/62 (76) 105/55 (72) Pulse Ox 96 98 98 O2 Delivery Room Air Room Air Room Air Room Air 11/25/18 11/25/18 11/25/18 11/25/18 03:00 07:00 08:00 11:00 Temp 98.0 98.7 98.7 98.0 98.7 98.7 Pulse 87 76 80 Resp 18 B/P (MAP) 92/59 (70) 104/60 (75) 110/68 (82) Pulse Ox 98 96 96 O2 Delivery Room Air Room Air Room Air Room Air Intake and Output 11/24/18 11/24/18 11/25/18 14:59 22:59 06:59 Intake Total 140 ml Output Total 2 ml 3 ml Balance -2 ml 137 ml MARYANNE SOLOMON III DO Nov 25, 2018 11:56
--- NOTE | 2018-11-25 13:19 | NUR ---
Patient was discharged from the facility with her belongings, patient discharge information and prescription for Augmenten 875mg Po BID for 7 days. Patient left the unit via wheelchair and was transferred to a private vehicle driven by a family member. The discharge packet information was discussed with the patient and there was no questions regarding the information she was provided.
--- NOTE | 2018-11-25 13:57 | PDOC3 ---
Discharge Summary Visit Information Date of Admission: Nov 23, 2018 Date of Discharge: Nov 25, 2018 Admitting Diagnosis: febrile neutropenia with history of B Cell lymphoma Final Diagnosis Problems Medical Problems: (1) Fever Status: Acute (2) Neutropenia Status: Acute B Cell lymphoma Brief Hospital Course Allergies Allergies Coded Allergies Type Severity Reaction Last Updated Verified thimerosal Allergy Intermediate Itching 09/12/18 Yes guaifenesin Adverse Reaction Intermediate 11/23/18 Yes Vital Signs Vital Signs Date Time Temp Pulse Resp B/P (MAP) Pulse Ox O2 Delivery O2 Flow Rate FiO2 11/25/18 11:00 98.7 80 18 110/68 (82) 96 Room Air 98.7 Lab Results Laboratory Tests Test 11/23/18 16:30 11/24/18 03:15 Lactic Acid Level 1.6 mmol/L (0.4-2.0) White Blood Count 0.3 x10^3/uL (4.0-11.0) Red Blood Count 3.76 x10^6/uL (3.50-5.40) Hemoglobin 9.9 g/dL (12.0-15.5) Hematocrit 30.4 % (36.0-47.0) Mean Corpuscular Volume 81 fL (79-100) Mean Corpuscular Hemoglobin 26 pg (25-35) Mean Corpuscular Hemoglobin Concent 33 g/dL (31-37) Red Cell Distribution Width 18.7 % (11.5-14.5) Platelet Count 100 x10^3/uL (140-400) Neutrophils (%) (Auto) 2 % (31-73) Lymphocytes (%) (Auto) 48 % (24-48) Monocytes (%) (Auto) 19 % (0-9) Eosinophils (%) (Auto) 31 % (0-3) Basophils (%) (Auto) 0 % (0-3) Neutrophils # (Auto) 0.0 x10^3uL (1.8-7.7) Lymphocytes # (Auto) 0.1 x10^3/uL (1.0-4.8) Monocytes # (Auto) 0.1 x10^3/uL (0.0-1.1) Eosinophils # (Auto) 0.1 x10^3/uL (0.0-0.7) Basophils # (Auto) 0.0 x10^3/uL (0.0-0.2) Sodium Level 139 mmol/L (136-145) Potassium Level 3.9 mmol/L (3.5-5.1) Chloride Level 104 mmol/L (98-107) Carbon Dioxide Level 26 mmol/L (21-32) Anion Gap 9 (6-14) Blood Urea Nitrogen 9 mg/dL (7-20) Creatinine 0.8 mg/dL (0.6-1.0) Estimated GFR (Cockcroft-Gault) 73.2 Glucose Level 109 mg/dL (70-99) Calcium Level 8.2 mg/dL (8.5-10.1) Brief Hospital Course Ms. Andrade is a 58 old [sex] who presented with febrile neutropenia. She has a history of B-cell lymphoma a history of B-cell lymphoma. She has about 6 more weeks of chemotherapy. She presented to the ER with febrile neutropenia was noted to have a white count of 0.2 and a low-grade fever. I spoke with Dr. Turner this morning in the [place] outside of the patient's room I also examined the patient her heart tones were normal her lungs were clear she was in good spirits she's had no more fevers. Dr. Turner feels it would be in her best interest to discharge today and I certainly agree and appreciate his input. he is concerned she could get a nosocomial disease or iatrogenic disease[ and feels it would be safer for her to be at home. We plan to discharge with close outpatient follow-up Disposition home Activity as tolerated Diet regular Medications please see low, but basically we are resuming her home medications and adding by mouth Augmentin.] Total time 33 minutes Discharge Information Scheduled Pantoprazole Sodium (Protonix) 20 Mg Tablet.dr, 40 MG PO DAILY for gerd, ( Reported) Entered as Reported by: LANEY DONOVAN on 09/15/181427 Last Action: Converted on 11/24/181733 by TYSON HOGUE MD Rituximab (Rituxan) 10 Mg/1 Ml Vial, 10 MG IV per chemo regimen for Bcell lymphoma to forehead, (Reported) Entered as Reported by: LANEY DONOVAN on 09/15/181427 Last Action: HELD on 11/24/181733 by TYSON HOGUE MD Thyroid,Pork ([place] Thyroid) 30 Mg Tablet, 1 TAB PO DAILY for hypothyroid, #30 Ref 5 (Reported) Entered as Reported by: RAYMOND HERRON on 11/23/181924 Last Action: Converted on 11/24/181733 by TYSON HOGUE MD Scheduled PRN Acetaminophen (Tylenol) 325 Mg Tablet, 1-2 TAB PO PRN Q6HRS PRN for MILD PAIN / TEMP, #60 Ref 2 (Reported) Entered as Reported by: MICHEAL REID on 11/23/181934 Last Action: Continued on 11/24/181733 by TYSON HOGUE MD Buspirone Hcl (Buspirone Hcl) 5 Mg Tablet, 1 TAB PO PRN BID PRN for ANXIETY, ( Reported) Entered as Reported by: NANI LAWRENCE on 09/13/181058 Last Action: Continued on 11/24/181733 by TYSON HOGUE MD Diphenhydramine Hcl (Benadryl) 25 Mg Capsule, 1-2 CAP PO PRN QHS PRN for INSOMNIA, #30 (Reported) Entered as Reported by: MICHEAL REID on 11/23/181934 Last Action: Continued on 11/24/181733 by TYSON HOGUE MD Discontinued Medications Thyroid,Pork (Thyroid) 30 Mg Tablet, 30 MG PO DAILY for hypothyroid, (Reported) Entered as Reported by: NANI LAWRENCE on 09/13/181058 Last Action: Discontinued on 11/23/181925 by MARYANNE BO III DO Nov 25, 2018 13:56
== END 2018-11-25 13:22 | disposition home or self-care (01) | DRG 809 ==
LOC: ER 12:09 → 5 NORTH 14:43
PROVIDERS: ADMIT Internal Medicine; ATTEND Internal Medicine
DX: D70.1 Agranulocytosis secondary to cancer chemotherapy (principal); C83.30 Diffuse large B-cell lymphoma, unspecified site; E03.9 Hypothyroidism, unspecified; D61.818 Other pancytopenia; R50.81 Fever presenting with conditions classified elsewhere; F32.9 Major depressive disorder, single episode, unspecified; M19.90 Unspecified osteoarthritis, unspecified site; E78.5 Hyperlipidemia, unspecified; J30.2 Other seasonal allergic rhinitis; D69.59 Other secondary thrombocytopenia; T45.1X5A Adverse effect of antineoplastic and immunosuppressive drugs, initial encounter; K12.30 Oral mucositis (ulcerative), unspecified; Z88.8 Allergy status to other drugs, medicaments and biological substances; Z86.73 Personal history of transient ischemic attack (TIA), and cerebral infarction without residual deficits; Z90.710 Acquired absence of both cervix and uterus; Z79.899 Other long term (current) drug therapy; Y92.89 Other specified places as the place of occurrence of the external cause
CPT/HCPCS: 36415; 71046; 80048; 80053; 81001; 83605; 84145; 84484; 85007; 85025; 86644; 86645; 86695; 87040; 87798; 87804; 93005; 96361; 96365; 96368; J0692; J2405; J2543; J3370; J7030; J7040; Q0163; 99285-25

== ENCOUNTER 2019-01-09 08:30 | Outpatient (CLI) | payer OTHER ==
[2019-01-09] VITALS (14 sets, daily range): BP systolic 99–145; BP diastolic 48–77
[~2019-01-09] VITALS: Ht 160 cm; Wt 67.1 kg
[~2019-01-09 08:30] MED LIST changes: +ACET325T9 PO; +DIPH25CA58 PO
[2019-01-09] MEDS ORDERED: BUSP5TAB PO (08:51)
[2019-01-09] MEDS ORDERED: LORA10TA68 PO (08:51)
[2019-01-09 09:19] LABS: BASO # 0.1 x10^3/uL (0.0-0.2); BASO % 2 % (0-3); EOS # 0.1 x10^3/uL (0.0-0.7); EOS % 1 % (0-3); HEMATOCRIT 33.4 % (36.0-47.0); HEMOGLOBIN 11.1 g/dL (12.0-15.5); LYMPH # 0.4 x10^3/uL (1.0-4.8); LYMPH % 10 % (24-48); MEAN CORPUSCULAR HEMOGLOBIN 29 pg (25-35); MEAN CORPUSCULAR HGB CONC 33 g/dL (31-37); MEAN CORPUSCULAR VOLUME 86 fL (79-100); MONO # 0.5 x10^3/uL (0.0-1.1); MONO % 13 % (0-9); NEUT # 2.9 x10^3uL (1.8-7.7); NEUT % 74 % (31-73); PLATELET COUNT 158 x10^3/uL (140-400); PROTHROMBIN TIME PATIENT 12.3 SEC (11.7-14.0); RED BLOOD COUNT 3.87 x10^6/uL (3.50-5.40)
[2019-01-09] MEDS ORDERED: MIDAZOLAM HCL/PF 2 MG/2 ML VIAL. ONE (09:29)
[2019-01-09] MEDS ORDERED: LIDOCAINE WITH 8.4% SOD BICARB 3 ML DISP.SYRIN. ONE (09:29)
[2019-01-09] MEDS ORDERED: fentaNYL PF VIAL 100 MCG/2 ML VIAL ONE (09:29)
[2019-01-09] MEDS ORDERED: fentaNYL PF VIAL 100 MCG/2 ML VIAL IV ONE (09:45)
[2019-01-09] MEDS ORDERED: LIDOCAINE WITH 8.4% SOD BICARB 3 ML DISP.SYRIN. IJ ONE (09:45)
[2019-01-09] MEDS ORDERED: MIDAZOLAM HCL/PF 2 MG/2 ML VIAL. IV ONE (09:45)
[2019-01-09 10:48] LABS: % BANDS 10 % (0-9); % EOS 1 % (0-5); % LYMPHS 12 % (24-48); % MONOS 9 % (0-10); % SEGS 68 % (35-66); PLT ESTIMATE ADEQUATE (ADEQUATE)
[2019-01-09 10:49] LABS: ANISOCYTOSIS PRESENT
--- NOTE | 2019-01-09 11:35 | PDOC ---
MODERATE SEDATION ASSESSMENT RISKS/ALTERNATIVES Risks/Alternatives Risks and alternatives of this type of sedation and procedure discussed with: RISK/ALTERNATIVES: Patient H & P ON CHART H & P H & P on chart and reviewed for co-morbid conditions and appropriate labs. H&P ON CHART: Yes STATUS PREG STATUS ASSESSED: Yes MEDS/ALLERGIES REVIEWED Meds/Allergies Reviewed Medications and Allergies including time and route of recently administered narcotics and sedatives. MEDS/ALLERGIES REVIEWED: Yes ASA RATING ASA RATING: II AIRWAY ASSESSMENT Airway Assessment Airway patency, oral function limitations, presence of caps, crowns, dentures, partials, and ability to extend neck assessed. AIRWAY ASSESSMENT: Yes MALLAMPATI SCORE MALLAMPATI SCORE: II PRE-SEDATION ASSESSMENT PRE-SEDATION ASSESSMENT: Yes MARCI CORTEZ MD Jan 09, 2019 11:35
--- NOTE | 2019-01-09 11:35 | PDOC ---
BRIEF OPERATIVE NOTE Pre-Op Diagnosis Lymphoma Post-Op Diagnosis same Procedure Performed CT Bone Marrow Biopsy Surgeon Shae Anesthesia Type: Conscious Sedation Specimens Obtained 2 x 3cc aspirates and 1 x 10g core Findings CT Bone Marrow Aspiration Complications No immediate MARCI CORTEZ MD Jan 09, 2019 11:35
[2019-01-09] MEDS ORDERED: HEPARIN PF 500 UNIT/5 ML DISP.SYRIN. IV ONE (12:31)
--- NOTE | 2019-01-09 12:56 | NUR ---
Discharge Note: LUISA HERNANDEZ Discharge instructions and discharge home medications reviewed with Patient and a copy given. All questions have been answered and understanding verbalized. The following instructions and handouts were given: moderate sedation and bone marrow biopsy care. Discontinued lines and drains: Deaccessed port with needle intact. Site C/D/I. Patient discharged to Home with via wheelchair. Pt tolerated PO fluids and snacks and used restroom before discharge.
--- NOTE | 2019-01-09 14:23 | RAD ---
Procedure: CT-guided bone marrow aspiration and biopsy Clinical Indication: 58-year-old female with lymphoma Sedation: Conscious sedation was administered with a total intraprocedural [id number] time of 13 minutes. The patient was monitored by a qualified independent observer throughout the time of sedation. Please refer to the medical record for exact doses of medications utilized to achieve moderate sedation. Antibiotics: None Fluoro Time: Not applicable Contrast: None Sterility: The procedure was performed in its entirety using appropriate elements of sterile technique. Consent: The procedure was explained in its entirety to the patient or the patients designated account maintenance representative by a member of the treatment team, including a discussion of the risks, benefits and commonly accepted alternatives to the procedure, as well as the expected consequences of no therapy whatsoever. Discussion of the risks included, but was not limited to, those that are most frequent and those that are rare but possibly severe or life-threatening, as well as the possibility of unforeseen complications. Technique and Findings: Following informed consent, the patient was prepped and draped in usual sterile fashion. Preliminary CT scan of the area of interest was performed. 1% Lidocaine was used to achieve local anesthesia. Under periodic CT surveillance, an 11-gauge needle was advanced through the cortex of the posterior superior iliac spine and 2 separate 2 mL marrow aspirates were obtained and preserved on site by the pathology manager. A single 11-gauge core biopsy specimen was then obtained and preserved in formalin. The needle was then removed and hemostasis was achieved with manual compression. Complications: No immediate Impression: 1. CT-guided bone marrow aspiration and biopsy as described PQRS Compliance Statement: One or more of the following individualized dose reduction techniques were utilized for this examination: 1. Automated exposure control 2. Adjustment of the mA and/or kV according to patient size 3. Use of iterative reconstruction technique
--- NOTE | 2019-01-16 12:07 | PATHOLOGY ---
[facility] Accession Number: [id number] . 01 Material submitted: . PART A: bone - BONE MARROW BIOPSY PART B: bone - BONE MARROW CLOT PART C: bone - BONE MARROW ASPIRATE SLIDES PART D: bone - PERIPHERAL BLOOD SMEAR PART E: bone - BONE MARROW FLOW . 01 Clinical history: . 58-year-old woman with lymphoma. This is a restaging marrow. . 02 Diagnosis: Bone marrow aspirate, biopsy, cell clot and peripheral blood: - Peripheral blood with mild normocytic anemia. - Hypercellular bone marrow with trilineage hematopoiesis, minimal dyspoiesis and no evidence of lymphoma or acute leukemia. (See comment) LBQ/01/12/2019 . 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 The minimal dyspoiesis is likely related to the patient's underlying medical condition and/or therapy. It does not meet the morphologic criteria for myelodysplasia. Cytogenetics showed a normal female karyotype. Correlation with clinical history and additional laboratory data is recommended. The current case is co-reviewed with Dr. Denis Garg. (CLW/db; 01/12/2019) . 02 Electronically signed: . Sheyla Sanchez MD, Pathologist NPI- [id number] . 01 Gross description: . A. The specimen is received in formalin, labeled "Lupe Cecilia, BM BX", is a cylindrical, waite-brown bone measuring 1.2 cm in length and with an average 0.2 cm diameter. The specimen is entirely submitted in A1 after decalcification in Immunocal. . B. The specimen is received in formalin, labeled "Cecilia Andrade, BM ASP clot", consist of waite-brown clot measuring 2.5 x 2.0 x 0.4 cm. The specimen is entirely submitted in B1. ([employer]; 01/09/2019) [facility] . 02 Microscopic: . CBC Data (01/09/19): WBC 4,000 /uL, RBC 3.87, hemoglobin 11.1 g/dL, hematocrit 33.4%, MCV 86 fL, MCH 29 pg, MCHC 33 g/dL, RDW 16.0%, and platelet count 158,000 /uL. White blood cell differential: segs 74%, lymphs 10%, monos 13%, eos 1% and basos 2%. . Peripheral Blood Smear: Cytomorphological examination of the Covarrubias's stained peripheral blood smear confirms the provided data. Red blood cells show mild normocytic anemia with no significant anisopoikilocytosis. White blood cells are predominantly segmented neutrophils and are without significant dyspoiesis or significant left shift. Lymphocytes are predominantly small, round, and mature appearing with condensed chromatin and scant cytoplasm with admixed large granular lymphocytes. On scanning, no markedly atypical lymphoid cells are seen. Monocytes are mature. Platelets are adequate in number and mainly normal in morphology with rare larger platelets noted. . Aspirate Smears: Cytomorphological examination of the Covarrubias's stained aspirate smear shows spicules present. The overall cellularity is approximately 60%. The myeloid to erythroid ratio is 2:1. Full myeloid maturation is identified and is without significant dyspoiesis. Erythroid maturation is mildly dyserythropoietic with irregular nuclear contours, left shifted maturation and nuclear cytoplasmic dyssynchrony. In a 500 cell differential, there are 1% blasts (no Nash rods are seen), 67% more differentiated myeloids, 29% erythroid precursors and 3% lymphocytes. Megakaryocytes are proportional in number and both normal and abnormal in morphology with variable sizes and nuclear abnormalities. No lymphoid aggregates or markedly atypical lymphoid cells are seen. Plasma cells are without atypia. Iron stain of the aspirate smear shows 2/4+ iron positivity with spicules present. No ringed sideroblasts are identified. . Core Biopsy and Cell Clot: The decalcified bone marrow core biopsy is adequate. The bone marrow is hypercellular with an overall cellularity of 60-70%. The myeloid to erythroid ratio is 2:1. Myeloid maturation is without significant dyspoiesis. Erythroid maturation is mildly dyserythropoietic. Megakaryocytes are normal in number and both normal and abnormal in morphology. Rare interstitial, ill-defined lymphoid aggregates composed of small lymphocytes are noted. No markedly atypical lymphoid cells are seen. Bony trabeculae and blood vessels are unremarkable. The cell clot has spicules present that are similar in cellularity and differential morphology as previously described. Again, scattered, ill-defined lymphoid aggregates composed of small lymphocytes are noted. No markedly atypical lymphoid cells are seen. . Properly controlled special stains are performed. . Block A1 Iron - 2/4+ iron positivity Reticulin - No significant reticulin fibrosis . Block B1 Iron - 2/4+ iron positivity with spicules present . Due to the history of lymphoma, to confirm the flow cytometry findings and to identify cells in a tissue architectural context, properly controlled immunohistochemical stains are performed. . Block A1 CD79a - Stains rare scattered small B-cells PAX5 - Stains rare scattered small B-cells CD3 - Stains the small irregular lymphoid aggregate . Block B1 79a - Stains rare scattered small B-cells, focally within the aggregates PAX5 - Stains rare scattered small B-cells CD3 - Highlights the small irregular aggregates . Flow Cytometry: Flow cytometric immunophenotypic analysis was performed at [facility]. The diagnosis is "no diagnostic immunophenotypic abnormalities detected." There are 2.9% lymphocytes. Of the lymphocytes, there are 89% T-cells with a CD4/CD8 ratio of 2.3 and no aberrant T-cell antigen expression. There are 0% mature B-cells. There are 0.7% CD34 positive cells (blasts) and precursor B-cells are not increased. The prior flow cytometry exam reported a minute monoclonal B-cell population which the current exam shows no evidence of a lymphoproliferative disorder. Please see separate flow cytometry report from [facility] *([id number]). . Cytogenetics: Cytogenetic chromosomal analysis was performed at [facility]. The karyotype is 46,XX(20). The interpretation is a normal female karyotype. A normal female karyotype is observed in all cells analyzed. Please see separate cytogenetics report from [facility] *([id number]). (CLW/db; 01/12/2019) . *Professional and technical components performed by [employer]. . 02 Pathologist provided ICD-10: D75.89, D64.9 . 02 CPT . 077411, 376463, 321586, 379431, 099507, 442047, 646201, 924280, 871912, [id number], [id number] Specimen Comment: A courtesy copy of this report has been sent to Specimen Comment: [phone], , . Specimen Comment: Report sent to ,DR ARMIJO / DR GARCIA Performed at: 01 [facility] [address] [id number] MD Denzel Ibrahim MD Phone: [phone] Performed at: 02 [facility] [address] [id number] MD Cooper Gallego MD Phone: [phone]
== END 2019-01-09 12:42 | disposition home or self-care (01) ==
LOC: INTRAD 08:30
PROVIDERS: ATTEND Internal Medicine Hematology & Oncology
DX: C85.90 Non-Hodgkin lymphoma, unspecified, unspecified site (principal); K21.9 Gastro-esophageal reflux disease without esophagitis; E03.9 Hypothyroidism, unspecified; F41.9 Anxiety disorder, unspecified; Z87.01 Personal history of pneumonia (recurrent); Z92.21 Personal history of antineoplastic chemotherapy; Z90.710 Acquired absence of both cervix and uterus; Z98.890 Other specified postprocedural states
CPT/HCPCS: 36415; 38222; 77012; 85025; 85610; 88184; 88185; 88237; J2250; J3010; 85007; 99152

== ENCOUNTER 2019-02-21 06:59 | Outpatient (CLI) | payer OTHER ==
[~2019-02-21] VITALS: Ht 160 cm; Wt 67.1 kg
[~2019-02-21 06:59] MED LIST changes: +LORA10TA68 PO
[2019-02-21 07:30] VITALS: BP 116/64
[2019-02-21 07:56] LABS: BASO # 0.1 x10^3/uL (0.0-0.2); BASO % 1 % (0-3); EOS # 0.6 x10^3/uL (0.0-0.7); EOS % 17 % (0-3); HEMATOCRIT 39.3 % (36.0-47.0); HEMOGLOBIN 12.7 g/dL (12.0-15.5); LYMPH # 0.5 x10^3/uL (1.0-4.8); LYMPH % 12 % (24-48); MEAN CORPUSCULAR HEMOGLOBIN 27 pg (25-35); MEAN CORPUSCULAR HGB CONC 32 g/dL (31-37); MEAN CORPUSCULAR VOLUME 85 fL (79-100); MONO # 0.4 x10^3/uL (0.0-1.1); MONO % 11 % (0-9); NEUT # 2.2 x10^3/uL (1.8-7.7); NEUT % 59 % (31-73); PLATELET COUNT 211 x10^3/uL (140-400); RED BLOOD COUNT 4.62 x10^6/uL (3.50-5.40); RED CELL DISTRIBUTION WIDTH 13.8 % (11.5-14.5); WHITE BLOOD COUNT 3.7 x10^3/uL (4.0-11.0)
[2019-02-21 08:07] LABS: PROTHROMBIN TIME PATIENT 13.4 SEC (11.7-14.0)
[2019-02-21] MEDS ORDERED: LIDOCAINE 1%/EPI 1:100,000 20 ML VIAL. ONE (08:22)
[2019-02-21 09:00] VITALS: BP 118/59
[2019-02-21] MEDS ORDERED: LIDOCAINE 1%/EPI 1:100,000 20 ML VIAL. IJ ONE (09:00)
--- NOTE | 2019-02-21 09:39 | NUR ---
Discharge Note: LUISA HERNANDEZ Discharge instructions and discharge home medications reviewed with Spouse and a copy given. All questions have been answered and understanding verbalized. The following instructions and handouts were given: Sj cath removal. Discontinued lines and drains: NO IV access. Patient discharged to home with via private vehicle.
--- NOTE | 2019-02-21 12:49 | RAD ---
Procedure: Removal of central venous catheter with port 02/21/2019 12:46 PM Clinical Indication: FINISHED WITH TREATMENT Discussion: The risks and benefits of the procedure were discussed the patient and/or their rental representative. Informed consent was obtained. A timeout procedure was performed. All elements of maximal sterile barrier technique including the use of a cap, mask, sterile gown, sterile gloves, large sterile sheet, appropriate hand hygiene, and 2% chlorhexidine for cutaneous antisepsis (or acceptable alternative antiseptic per current guidelines) were followed for this procedure. The patient was prepped and draped in the usual sterile fashion. 1% lidocaine was administered for local anesthesia. A small incision was made overlying the port reservoir. The port and catheter were removed in tact. The wound was closed in layers using 4-0 absorbable suture. Complete removal was confirmed by inspection, as well as fluoroscopy. Reference images were saved to the medical record. Sterile dressings were applied. No immediate complications were identified. Fluoroscopy Time: 0.1 MIN DAP: 0.1 Gycm2 Anesthesia: Local only Impression: Removal of central venous catheter with port
== END 2019-02-21 09:15 | disposition home or self-care (01) ==
LOC: INTRAD 06:59
PROVIDERS: ATTEND Internal Medicine Hematology & Oncology
DX: Z45.2 Encounter for adjustment and management of vascular access device (principal); Z79.01 Long term (current) use of anticoagulants
CPT/HCPCS: 36415; 36590; 77001; 85025; 85610

== ENCOUNTER → 2019-08-15 | Outpatient (CLI) | payer OTHER ==
--- NOTE | 2019-08-15 15:36 | KCIC ---
Bilateral digital screening mammograms with 3-D tomosynthesis: Reason for examination: Routine screening. Comparison is made to previous study dated 10/21/2017. Bilateral mammograms in CC and oblique projections were obtained with 2-D imaging and 3-D tomosynthesis imaging on a Siemens Inspiration unit and reviewed on the workstation. Interpretation was made with the benefit of CAD. The skin and nipples show no abnormalities. No abnormal axillary lymph nodes are seen. The breast parenchyma is heterogeneously dense. (Breast density: Category C.) There continue to be small parenchymal asymmetries which are stable. There are no new dominant masses, suspicious calcifications or architectural distortion. Impression: No evidence of malignancy. Recommend routine screening. Your patient's mammogram demonstrates that she has dense breast tissue (breast density category C or D), which could hide abnormalities, and if she has other risk factors for breast cancer that have been identified, she might benefit from supplemental screening tests that may be suggested by you as her ordering physician. Dense breast tissue, in and of itself, is a relatively common condition. Therefore, this information is not provided to cause undue concern, but rather to raise your awareness and to promote discussion with your patient regarding the presence of other risk factors, in addition to dense breast tissue. Your patient's mammography results will be sent to her. BI-RAD Category 2: Benign. "Our facility is accredited by the [employer] Mammography Program." This patient's information has been entered into a reminder system for the patient to be notified with the results of her examination and a target date for the next mammogram. Electronically signed by: Reema Cruz MD (08/15/2019 3:33 PM) [id number]
== END | disposition home or self-care (01) ==
LOC: KCIC MAMMO 14:10
PROVIDERS: ATTEND Internal Medicine
DX: Z12.31 Encounter for screening mammogram for malignant neoplasm of breast (principal)
CPT/HCPCS: 77063; 77067

== ENCOUNTER → 2020-08-16 | Outpatient (CLI) | payer BC, OTHER ==
[~2020-08-16] MED LIST changes: +FAMO-63 PO
--- NOTE | 2020-08-16 16:41 | KCIC ---
Bilateral digital screening mammograms and tomosynthesis Reason for examination: Routine screening Comparison is made to previous study dated August 15, 2019 and priors Routine CC and MLO digital views obtained. Interpretation was made with the benefit of CAD. The skin and nipples show no abnormalities. No abnormal axillary lymph nodes are seen. The breast par enchyma is heterogeneously dense. (Breast density: Category C.) There are no suspicious masses, suspi cious calcifications or architectural distortion. Nodularity of the breast tissue is stable. Benign c alcifications. Impression: Negative mammogram. Recommend routine screening. ?Your patient's mammogram demonstrates that she has dense breast tissue (breast density category C or D), which could hide abnormalities, and if she has other risk factors for breast cancer that have be en identified, she might benefit from supplemental screening tests that may be suggested by you as he r ordering physician. Dense breast tissue, in and of itself, is a relatively common condition. Theref ore, this information is not provided to cause undue concern, but rather to raise your awareness and to promote discussion with your patient regarding the presence of other risk factors, in addition to dense breast tissue. Your patient's mammography results will be sent to her. BI-RAD Category 2: Benign. "Our facility is accredited by the [employer] Mammography Program." This patient's information has been entered into a reminder system for the patient to be notified wit h the results of her examination and a target date for the next mammogram. Electronically signed by: Santos David MD (08/16/2020 4:36 PM) [id number]
== END ==
LOC: KCIC MAMMO 08:05
PROVIDERS: ATTEND Internal Medicine
DX: Z12.31 Encounter for screening mammogram for malignant neoplasm of breast (principal)
CPT/HCPCS: 77063; 77067

== ENCOUNTER → 2021-09-29 | Outpatient (CLI) | payer OTHER ==
--- NOTE | 2021-09-29 11:20 | KCIC ---
Bilateral digital screening mammograms with 3-D tomosynthesis: Reason for examination: Routine screening. Comparison is made to previous studies dated back to 06/05/2015. Bilateral mammograms in CC and oblique projections were obtained with 2-D imaging and 3-D tomosynthes is imaging on a Siemens Inspiration unit and reviewed on the workstation. Interpretation was made wit h the benefit of CAD. The skin and nipples show no abnormalities. No abnormal axillary lymph nodes are seen. The breast par enchyma is heterogeneously dense. (Breast density: Category C.) There are no dominant masses, suspici ous calcifications or architectural distortion. Impression: No evidence of malignancy. Recommend routine screening. Your patient's mammogram demonstrates that she has dense breast tissue (breast density category C or D), which could hide abnormalities, and if she has other risk factors for breast cancer that have bee n identified, she might benefit from supplemental screening tests that may be suggested by you as her ordering physician. Dense breast tissue, in and of itself, is a relatively common condition. Therefo re, this information is not provided to cause undue concern, but rather to raise your awareness and t o promote discussion with your patient regarding the presence of other risk factors, in addition to d ense breast tissue. Your patient's mammography results will be sent to her. BI-RAD Category 1: Negative. "Our facility is accredited by the [employer] Mammography Program." This patient's information has been entered into a reminder system for the patient to be notified wit h the results of her examination and a target date for the next mammogram. Electronically signed by: Reema Cruz MD (09/29/2021 11:17 AM) [id number]
== END ==
LOC: KCIC MAMMO 09:43
PROVIDERS: ATTEND Internal Medicine
DX: Z12.31 Encounter for screening mammogram for malignant neoplasm of breast (principal)
CPT/HCPCS: 77063; 77067